=== PATIENT | male | born 1995 | race Two or more races ===

== ENCOUNTER 2019-05-27 13:46 | Inpatient (IN) | payer MEDICAID ==
[~2019-05-27] VITALS: Ht 175.3 cm; Wt 154.0 kg
[2019-05-27 14:37] VITALS: BP 117/68
[2019-05-27] MEDS ORDERED: HALOPERIDOL 5 MG TABLET PO PRN (14:45)
[2019-05-27] MEDS ORDERED: ZOLPIDEM TARTRATE 10 MG TABLET PO PRN (14:45)
[2019-05-27] MEDS ORDERED: INFLUENZA VIRUS VACCINE QVS 2019-20 (3YR+)/PF 60 MCG/0.5 ML SYRINGE IM ONE (15:15)
[2019-05-27 16:26] VITALS: BP 124/71
[2019-05-27] MEDS: LORazepam 2 MG TABLET PO PRN (16:28)
[2019-05-28 00:30] VITALS: BP 111/62
[2019-05-28] MEDS: NICOTINE 21 MG/24 HOUR PATCH TD SCH (09:57)
[2019-05-28] MEDS: BACITRACIN 28.4 GM OINTMENT TP SCH ×2 (09:57→16:17)
[2019-05-28 16:02] VITALS: BP 116/68
[2019-05-28] MEDS: LORazepam 2 MG TABLET PO PRN (16:28)
[2019-05-29] MEDS: LORazepam 2 MG TABLET PO PRN ×3 (05:44→18:42)
[2019-05-29 06:00] VITALS: BP 127/71
[2019-05-29 08:04] VITALS: BP 106/69
[2019-05-29] MEDS: NICOTINE 21 MG/24 HOUR PATCH TD SCH (08:04)
[2019-05-29] MEDS: BACITRACIN 28.4 GM OINTMENT TP SCH ×2 (08:05→17:40)
[2019-05-29 08:16] LABS: HEMOGLOBIN A1C 4.6 % (4.5-6.2)
[2019-05-29 08:27] LABS: EOSINOPHILS % (AUTO) 14.6 % (1.0-6.0); HEMATOCRIT 45.1 % (41-53); HEMOGLOBIN 15.6 g/dL (13.5-17.5); LYMPHOCYTES # (AUTO) 1.2 K/uL (1.0-4.8); LYMPHOCYTES % (AUTO) 18.8 % (22.0-44.0); MEAN CORPUSCULAR HEMOGLOBIN 32.7 pg (26.0-34.0); MEAN CORPUSCULAR HGB CONC 34.7 G/dL (31.0-37.0); MEAN CORPUSCULAR VOLUME 94 fL (80-100); MONOCYTES # (AUTO) 0.5 K/uL (0.1-1.0); MONOCYTES % (AUTO) 7.5 % (2.0-9.0); NEUTROPHILS # (AUTO) 3.8 K/uL (1.8-7.7); NEUTROPHILS % (AUTO) 58.1 % (40.0-70.0); PLATELET COUNT (AUTO) 207 K/uL (150-450); RED BLOOD CELL COUNT(AUTO) 4.79 MIL/uL (4.50-5.90); RED CELL DISTRIBUTION WIDTH 13.1 % (11.5-14.5)
[2019-05-29 08:31] LABS: ALANINE AMINOTRANSFERASE 18 U/L (12-78); ALBUMIN 3.4 g/dL (3.4-5.0); ALKALINE PHOSPHATASE 52 U/L (46-116); ANION GAP 5 mmol/L (8-16); ASPARTATE AMINOTRANSFERASE 14 U/L (15-37); BILIRUBIN,TOTAL 0.6 mg/dL (0.1-1.0); CALCIUM, TOTAL 8.2 mg/dL (8.8-10.5); CARBON DIOXIDE 30 mmol/L (22-29); CHLORIDE 103 mmol/L (98-107); CHOL/HDL RATIO 2.7 (4.2-7.3); CHOLESTEROL 107 mg/dL (131-200); CREATININE 0.85 mg/dL (0.60-1.30); FREE T4 (FREE THYROXINE) 0.79 ng/dL (0.76-1.46); GLOMERULAR FILTR. RATE CALC > 60 mL/min (>60); GLUCOSE,RANDOM 105 mg/dL (70-110); HDL CHOLESTEROL 40 mg/dL (40-60); LDL CHOL (CALC.) 55 mg/dL (0-130); POTASSIUM 3.6 mmol/L (3.5-5.1); SODIUM SERUM 138 mmol/L (136-145); THYROID STIMULATING HORMONE 1.33 uIU/mL (0.36-3.74); TOTAL PROTEIN, SERUM 6.3 g/dL (6.4-8.2); TRIGLYCERIDES 58 mg/dL (15-150); UREA NITROGEN, BLOOD 12 mg/dL (7-18)
[2019-05-29 16:24] VITALS: BP 108/60
[2019-05-30 00:43] VITALS: BP 117/72
[2019-05-30 08:10] VITALS: BP 108/94
[2019-05-30] MEDS: BACITRACIN 28.4 GM OINTMENT TP SCH (08:19)
[2019-05-30] MEDS: NICOTINE 21 MG/24 HOUR PATCH TD SCH (08:19)
[2019-05-30] MEDS: LORazepam 2 MG TABLET PO PRN (10:13)
[2019-05-30] MEDS ORDERED: BACI30OI10 TP (11:32)
== END 2019-05-30 12:30 | disposition home or self-care (01) | DRG 750 ==
LOC: B2S 14:51
PROVIDERS: ADMIT Psychiatry & Neurology Psychiatry; ATTEND Psychiatry & Neurology Psychiatry
DX: F25.9 Schizoaffective disorder, unspecified (principal); F15.90 Other stimulant use, unspecified, uncomplicated
CPT/HCPCS: 83036; 84439; 84443

== ENCOUNTER 2019-06-07 15:05 | Inpatient (IN) | payer MEDICAID ==
[~2019-06-07] VITALS: Ht 175.3 cm; Wt 71.7 kg
[~2019-06-07 15:05] MED LIST: BACI30OI10 TP
[2019-06-07] MEDS ORDERED: HALOPERIDOL 5 MG TABLET PO PRN (16:30)
[2019-06-07 16:50] VITALS: BP 113/66
[2019-06-08 00:49] VITALS: BP 109/62
[2019-06-08] MEDS ORDERED: INFLUENZA VIRUS VACCINE QVS 2019-20 (3YR+)/PF 60 MCG/0.5 ML SYRINGE IM ONE (03:45)
[2019-06-08 08:12] VITALS: BP 111/76
[2019-06-08 08:19] LABS: APPEARANCE,URINE CLEAR (CLEAR); BILIRUBIN,URINE NEGATIVE (NEGATIVE); GLUCOSE, URINE (UA) NEGATIVE (NEGATIVE); KETONES,URINE NEGATIVE (NEGATIVE); LEUKOCYTE ESTERASE ,URINE NEGATIVE (NEGATIVE); NITRATE,URINE NEGATIVE (NEGATIVE); OCCULT BLOOD,URINE NEGATIVE (NEGATIVE); PH,URINE 7.5 (5.0-8.0); PROTEIN,URINE NEGATIVE (NEGATIVE)
[2019-06-08 08:20] LABS: BASOPHILS % (AUTO) 0.5 % (0.0-2.0); EOSINOPHILS % (AUTO) 14.3 % (1.0-6.0); HEMATOCRIT 47.1 % (41-53); HEMOGLOBIN 16.2 g/dL (13.5-17.5); LYMPHOCYTES # (AUTO) 1.5 K/uL (1.0-4.8); LYMPHOCYTES % (AUTO) 23.8 % (22.0-44.0); MEAN CORPUSCULAR HEMOGLOBIN 32.6 pg (26.0-34.0); MEAN CORPUSCULAR HGB CONC 34.4 G/dL (31.0-37.0); MEAN CORPUSCULAR VOLUME 95 fL (80-100); MONOCYTES # (AUTO) 0.5 K/uL (0.1-1.0); MONOCYTES % (AUTO) 8.1 % (2.0-9.0); NEUTROPHILS # (AUTO) 3.3 K/uL (1.8-7.7); NEUTROPHILS % (AUTO) 53.3 % (40.0-70.0); PLATELET COUNT (AUTO) 212 K/uL (150-450); RED BLOOD CELL COUNT(AUTO) 4.96 MIL/uL (4.50-5.90); RED CELL DISTRIBUTION WIDTH 13.2 % (11.5-14.5)
[2019-06-08 08:24] LABS: AMPHET/METH SCREEN,URINE NEGATIVE (NEGATIVE); BARBITURATE SCREEN, URINE NEGATIVE (NEGATIVE); BENZODIAZEPINES SCREEN,URINE NEGATIVE (NEGATIVE); CANNABINOID SCREEN,URINE POSITIVE (NEGATIVE); COCAINE SCREEN,URINE NEGATIVE (NEGATIVE); METHADONE SCREEN, URINE NEGATIVE (NEGATIVE); OPIATE SCREEN,URINE NEGATIVE (NEGATIVE); PHENCYCLIDINE SCREEN,URINE NEGATIVE (NEGATIVE)
[2019-06-08 08:44] LABS: HEMOGLOBIN A1C 4.8 % (4.5-6.2)
[2019-06-08 08:49] LABS: ALANINE AMINOTRANSFERASE 71 U/L (12-78); ALBUMIN 3.7 g/dL (3.4-5.0); ALKALINE PHOSPHATASE 53 U/L (46-116); ANION GAP 8 mmol/L (8-16); ASPARTATE AMINOTRANSFERASE 92 U/L (15-37); BILIRUBIN,TOTAL 0.7 mg/dL (0.1-1.0); CALCIUM, TOTAL 8.9 mg/dL (8.8-10.5); CARBON DIOXIDE 28 mmol/L (22-29); CHLORIDE 103 mmol/L (98-107); CHOL/HDL RATIO 3.2 (4.2-7.3); CHOLESTEROL 145 mg/dL (131-200); CREATININE 0.93 mg/dL (0.60-1.30); FREE T4 (FREE THYROXINE) 0.76 ng/dL (0.76-1.46); GLOMERULAR FILTR. RATE CALC > 60 mL/min (>60); GLUCOSE,RANDOM 73 mg/dL (70-110); HDL CHOLESTEROL 46 mg/dL (40-60); LDL CHOL (CALC.) 88 mg/dL (0-130); POTASSIUM 4.1 mmol/L (3.5-5.1); SODIUM SERUM 139 mmol/L (136-145); THYROID STIMULATING HORMONE 1.19 uIU/mL (0.36-3.74); TOTAL PROTEIN, SERUM 6.7 g/dL (6.4-8.2); TRIGLYCERIDES 53 mg/dL (15-150); UREA NITROGEN, BLOOD 16 mg/dL (7-18)
[2019-06-08] MEDS: OLANZapine 5 MG TABLET PO SCH (16:35)
[2019-06-08 18:00] VITALS: BP 104/80
[2019-06-09 00:41] VITALS: BP 118/65
[2019-06-09 08:22] VITALS: BP 110/61
[2019-06-09] MEDS: OLANZapine 5 MG TABLET PO SCH ×2 (08:29→16:43)
[2019-06-09 16:23] VITALS: BP 102/60
[2019-06-09] MEDS: MUPIROCIN CALCIUM 2% 22 GM OINTMENT NASAL SCH (16:43)
[2019-06-10 00:18] VITALS: BP 107/60
[2019-06-10 08:11] VITALS: BP 100/72
[2019-06-10] MEDS: MUPIROCIN CALCIUM 2% 22 GM OINTMENT NASAL SCH ×2 (08:39→16:04)
[2019-06-10] MEDS: OLANZapine 5 MG TABLET PO SCH ×2 (08:39→16:04)
[2019-06-10 16:04] VITALS: BP 115/63
[2019-06-11 01:06] VITALS: BP 104/68
[2019-06-11 08:21] VITALS: BP 109/60
[2019-06-11] MEDS: MUPIROCIN CALCIUM 2% 22 GM OINTMENT NASAL SCH ×2 (08:56→16:09)
[2019-06-11] MEDS: OLANZapine 5 MG TABLET PO SCH ×2 (08:56→16:09)
[2019-06-11 16:07] VITALS: BP 123/70
[2019-06-11] MEDS: ZOLPIDEM TARTRATE 10 MG TABLET PO PRN (20:32)
[2019-06-12 00:12] VITALS: BP 121/60
[2019-06-12] MEDS: LORazepam 2 MG TABLET PO PRN (02:10)
[2019-06-12 08:16] VITALS: BP 135/73
[2019-06-12] MEDS: OLANZapine 5 MG TABLET PO SCH ×2 (08:22→16:30)
[2019-06-12] MEDS: MUPIROCIN CALCIUM 2% 22 GM OINTMENT NASAL SCH ×2 (08:23→16:31)
[2019-06-12 16:05] VITALS: BP 119/78
[2019-06-12] MEDS: ZOLPIDEM TARTRATE 10 MG TABLET PO PRN (20:27)
[2019-06-13] MEDS: LORazepam 2 MG TABLET PO PRN (00:25)
[2019-06-13] MEDS: ACETAMINOPHEN 325 MG TABLET PO PRN ×2 (00:25→07:50)
[2019-06-13] MEDS ORDERED: OLAN5TAB2 PO (08:15)
[2019-06-13 08:19] VITALS: BP 127/89
[2019-06-13] MEDS: MUPIROCIN CALCIUM 2% 22 GM OINTMENT NASAL SCH (09:02)
[2019-06-13] MEDS: OLANZapine 5 MG TABLET PO SCH (09:02)
== END 2019-06-13 10:00 | disposition home or self-care (01) | DRG 750 ==
LOC: B2S 16:59
PROVIDERS: ADMIT Psychiatry & Neurology Psychiatry; ATTEND Psychiatry & Neurology Psychiatry
DX: F25.9 Schizoaffective disorder, unspecified (principal); Z59.0 Homelessness; F12.90 Cannabis use, unspecified, uncomplicated; F15.90 Other stimulant use, unspecified, uncomplicated; R79.89 Other specified abnormal findings of blood chemistry; F32.9 Major depressive disorder, single episode, unspecified; Z28.21 Immunization not carried out because of patient refusal
CPT/HCPCS: 80307; 83036; 84439; 84443; 87081

== ENCOUNTER 2019-06-14 03:29 | Emergency (ER) | payer MEDICAID ==
[~2019-06-14] VITALS: Ht 175.3 cm; Wt 71.8 kg
[~2019-06-14 03:29] MED LIST changes: -BACI30OI10 TP; +OLAN5TAB2 PO
[2019-06-14] MEDS ORDERED: PERTUSS(ACELL),DIPH,TET VAC/PF 0.5 ML VIAL IM ONE (04:45)
[2019-06-14] MEDS ORDERED: LIDOCAINE/PF 1% 2 ML VIAL IM ONE (06:15)
[2019-06-14] MEDS ORDERED: CefTRIAXone SODIUM 1 GM/VIAL IM ONE (06:15)
[2019-06-14] MEDS ORDERED: BUPIVACAINE HCL/PF 0.25% 30 ML VIAL INJ ONE (06:15)
[2019-06-14 06:45] LABS: BASOPHILS % (AUTO) 0.6 % (0.0-2.0); EOSINOPHILS % (AUTO) 4.6 % (1.0-6.0); HEMATOCRIT 44.7 % (41-53); HEMOGLOBIN 15.4 g/dL (13.5-17.5); LYMPHOCYTES # (AUTO) 1.8 K/uL (1.0-4.8); LYMPHOCYTES % (AUTO) 14.8 % (22.0-44.0); MEAN CORPUSCULAR HEMOGLOBIN 32.7 pg (26.0-34.0); MEAN CORPUSCULAR HGB CONC 34.3 G/dL (31.0-37.0); MEAN CORPUSCULAR VOLUME 95 fL (80-100); MONOCYTES # (AUTO) 1.5 K/uL (0.1-1.0); MONOCYTES % (AUTO) 12.7 % (2.0-9.0); NEUTROPHILS % (AUTO) 67.3 % (40.0-70.0); PLATELET COUNT (AUTO) 198 K/uL (150-450); RED CELL DISTRIBUTION WIDTH 13.5 % (11.5-14.5)
[2019-06-14 06:56] LABS: ANION GAP 6 mmol/L (8-16); CALCIUM, TOTAL 8.7 mg/dL (8.8-10.5); CARBON DIOXIDE 30 mmol/L (22-29); CHLORIDE 104 mmol/L (98-107); CREATININE 0.94 mg/dL (0.60-1.30); GLOMERULAR FILTR. RATE CALC > 60 mL/min (>60); GLUCOSE,RANDOM 100 mg/dL (70-110); POTASSIUM 4.1 mmol/L (3.5-5.1); SODIUM SERUM 140 mmol/L (136-145); UREA NITROGEN, BLOOD 10 mg/dL (7-18)
[2019-06-14 07:02] LABS: ALANINE AMINOTRANSFERASE 44 U/L (12-78); ALBUMIN 3.7 g/dL (3.4-5.0); ALKALINE PHOSPHATASE 55 U/L (46-116); ASPARTATE AMINOTRANSFERASE 20 U/L (15-37); BILIRUBIN,TOTAL 0.6 mg/dL (0.1-1.0); TOTAL PROTEIN, SERUM 6.7 g/dL (6.4-8.2)
[2019-06-14 07:52] VITALS: BP 121/74
== END 2019-06-14 07:57 | disposition home or self-care (01) ==
LOC: EMS 03:29
DX: L02.611 Cutaneous abscess of right foot (principal); L03.031 Cellulitis of right toe; F41.9 Anxiety disorder, unspecified; F17.210 Nicotine dependence, cigarettes, uncomplicated; Z98.890 Other specified postprocedural states; Z79.899 Other long term (current) drug therapy
CPT/HCPCS: 10060; 36415; 73630; 80053; 85025; 87070; 87077; 87186; 87205; 90471; 90715; 96372; 99284; 99406; J0696; J3490 ×2

== ENCOUNTER 2019-07-03 03:44 | Inpatient (IN) | payer MEDICAID ==
[~2019-07-03] VITALS: Ht 175.3 cm; Wt 78.0 kg
[2019-07-03] MEDS ORDERED: QUEtiapine FUMARATE 100 MG TABLET PO PRN (08:45)
[2019-07-03 09:52] VITALS: BP 120/80
[2019-07-03] MEDS ORDERED: OLAN5TAB2 PO (10:35)
[2019-07-03] MEDS ORDERED: OLAN10TA3 PO (10:35)
[2019-07-03] MEDS ORDERED: INFLUENZA VIRUS VACCINE QVS 2019-20 (3YR+)/PF 60 MCG/0.5 ML SYRINGE IM ONE (11:00)
[2019-07-03] MEDS: OLANZapine 5 MG TABLET PO SCH ×2 (12:09→16:49)
[2019-07-03] MEDS: NICOTINE 21 MG/24 HOUR PATCH TD SCH (13:06)
[2019-07-03 16:23] VITALS: BP 113/62
[2019-07-04 01:10] VITALS: BP 114/77
[2019-07-04 01:58] VITALS: BP 114/73
[2019-07-04 08:00] VITALS: BP 111/62
[2019-07-04] MEDS: OLANZapine 5 MG TABLET PO SCH ×2 (08:21→16:56)
[2019-07-04] MEDS: NICOTINE 21 MG/24 HOUR PATCH TD SCH ×2 (08:21→09:00)
[2019-07-04] MEDS: BuPROPion HCL XL 150 MG ER TABLET PO SCH (12:34)
[2019-07-04 16:11] VITALS: BP 108/67
[2019-07-05 00:01] VITALS: BP 129/66
[2019-07-05] MEDS: OLANZapine 5 MG TABLET PO SCH ×2 (08:43→16:37)
[2019-07-05] MEDS: NICOTINE 21 MG/24 HOUR PATCH TD SCH (08:44)
[2019-07-05] MEDS: BuPROPion HCL XL 150 MG ER TABLET PO SCH (08:48)
[2019-07-05] MEDS: LORazepam 2 MG TABLET PO PRN (13:30)
[2019-07-05 20:31] VITALS: BP 104/67
[2019-07-06 05:15] VITALS: BP 116/77
[2019-07-06] MEDS: NICOTINE 21 MG/24 HOUR PATCH TD SCH (09:00)
[2019-07-06] MEDS: OLANZapine 10 MG TABLET PO SCH ×2 (09:31→16:05)
[2019-07-06] MEDS: BuPROPion HCL XL 150 MG ER TABLET PO SCH (09:32)
[2019-07-06] MEDS: LORazepam 2 MG TABLET PO PRN (16:05)
[2019-07-06 16:29] VITALS: BP 114/56
[2019-07-06] MEDS ORDERED: OLANZapine 5 MG TABLET PO SCH (17:00)
[2019-07-07 04:16] VITALS: BP 119/72
[2019-07-07 08:35] VITALS: BP 127/78
[2019-07-07] MEDS: NICOTINE 21 MG/24 HOUR PATCH TD SCH (09:00)
[2019-07-07] MEDS: BuPROPion HCL XL 150 MG ER TABLET PO SCH (10:38)
[2019-07-07] MEDS: OLANZapine 10 MG TABLET PO SCH ×2 (10:38→16:07)
[2019-07-07] MEDS: LORazepam 2 MG TABLET PO PRN ×2 (10:46→16:07)
[2019-07-07 16:18] VITALS: BP 121/59
[2019-07-07] MEDS: ZOLPIDEM TARTRATE 10 MG TABLET PO PRN (20:13)
[2019-07-08 02:06] VITALS: BP 120/70
[2019-07-08] MEDS: LORazepam 2 MG TABLET PO PRN ×2 (05:25→18:27)
[2019-07-08 08:28] VITALS: BP 131/76
[2019-07-08] MEDS: BuPROPion HCL XL 150 MG ER TABLET PO SCH (08:51)
[2019-07-08] MEDS: OLANZapine 10 MG TABLET PO SCH ×2 (08:51→17:17)
[2019-07-08] MEDS: NICOTINE 21 MG/24 HOUR PATCH TD SCH (08:51)
[2019-07-08 16:12] VITALS: BP 116/67
[2019-07-09 00:19] VITALS: BP 121/79
[2019-07-09] MEDS: OLANZapine 10 MG TABLET PO SCH ×2 (08:11→16:13)
[2019-07-09] MEDS: BuPROPion HCL XL 150 MG ER TABLET PO SCH (08:11)
[2019-07-09] MEDS: NICOTINE 21 MG/24 HOUR PATCH TD SCH (08:18)
[2019-07-09 08:34] VITALS: BP 114/69
[2019-07-09] MEDS: LORazepam 2 MG TABLET PO PRN (14:44)
[2019-07-09 16:17] VITALS: BP 116/73
[2019-07-09] MEDS: ZOLPIDEM TARTRATE 10 MG TABLET PO PRN (20:28)
[2019-07-10 01:32] VITALS: BP 123/67
[2019-07-10 08:00] VITALS: BP 129/68
[2019-07-10] MEDS ORDERED: PANTOPRAZOLE SODIUM 40 MG DR TABLET PO SCH (09:00)
[2019-07-10] MEDS: OLANZapine 10 MG TABLET PO SCH ×2 (09:43→16:38)
[2019-07-10] MEDS: NICOTINE 21 MG/24 HOUR PATCH TD SCH (09:44)
[2019-07-10] MEDS: BuPROPion HCL XL 150 MG ER TABLET PO SCH (09:44)
[2019-07-10 16:16] VITALS: BP 121/70
[2019-07-10] MEDS: ZOLPIDEM TARTRATE 10 MG TABLET PO PRN (20:26)
[2019-07-11 00:55] VITALS: BP 114/68
[2019-07-11] MEDS ORDERED: BUPR300T53 PO (03:28)
[2019-07-11] MEDS ORDERED: OLAN10TA3 PO (03:29)
[2019-07-11] MEDS ORDERED: PANT20TA PO (03:29)
== END 2019-07-11 07:26 | disposition home or self-care (01) | DRG 750 ==
LOC: B3A 08:00
PROVIDERS: ADMIT Psychiatry & Neurology Psychiatry; ATTEND Psychiatry & Neurology Psychiatry
DX: F25.1 Schizoaffective disorder, depressive type (principal); R45.851 Suicidal ideations; F15.10 Other stimulant abuse, uncomplicated; R79.89 Other specified abnormal findings of blood chemistry
CPT/HCPCS: 87081

== ENCOUNTER 2019-08-07 21:20 | Inpatient (IN) | payer MEDICAID ==
[~2019-08-07] VITALS: Ht 175.3 cm; Wt 84.4 kg
[~2019-08-07 21:20] MED LIST changes: +BUPR300T53 PO; +OLAN10TA3 PO; -OLAN5TAB2 PO; +PANT20TA PO
[2019-08-08 09:06] VITALS: BP 128/58
[2019-08-08] MEDS: OLANZapine 10 MG TABLET PO SCH ×2 (09:45→17:26)
[2019-08-08] MEDS: BuPROPion HCL XL 150 MG ER TABLET PO SCH (09:45)
[2019-08-08] MEDS ORDERED: ZOLPIDEM TARTRATE 10 MG TABLET PO PRN (09:45)
[2019-08-08 10:32] VITALS: BP 115/77
[2019-08-08] MEDS ORDERED: PNEUMOCOCCAL VACCINE POLYVALENT 0.5 ML VIAL [PPSV23] IM ONE (11:45)
[2019-08-08 16:29] VITALS: BP 124/68
[2019-08-09 00:44] VITALS: BP 127/76
[2019-08-09 08:36] VITALS: BP 121/74
[2019-08-09] MEDS: OLANZapine 10 MG TABLET PO SCH ×2 (08:55→17:35)
[2019-08-09] MEDS: BuPROPion HCL XL 150 MG ER TABLET PO SCH (08:55)
[2019-08-09 16:40] VITALS: BP 105/63
[2019-08-10 00:26] VITALS: BP 122/83
[2019-08-10 07:38] LABS: BASOPHILS % (AUTO) 0.8 % (0.0-2.0); EOSINOPHILS % (AUTO) 7.7 % (1.0-6.0); HEMATOCRIT 47.4 % (41-53); HEMOGLOBIN 16.5 g/dL (13.5-17.5); LYMPHOCYTES # (AUTO) 1.4 K/uL (1.0-4.8); LYMPHOCYTES % (AUTO) 17.6 % (22.0-44.0); MEAN CORPUSCULAR HEMOGLOBIN 32.7 pg (26.0-34.0); MEAN CORPUSCULAR HGB CONC 34.8 G/dL (31.0-37.0); MEAN CORPUSCULAR VOLUME 94 fL (80-100); MONOCYTES # (AUTO) 0.8 K/uL (0.1-1.0); MONOCYTES % (AUTO) 10.6 % (2.0-9.0); NEUTROPHILS # (AUTO) 5.1 K/uL (1.8-7.7); NEUTROPHILS % (AUTO) 63.3 % (40.0-70.0); PLATELET COUNT (AUTO) 214 K/uL (150-450); RED BLOOD CELL COUNT(AUTO) 5.05 MIL/uL (4.50-5.90); RED CELL DISTRIBUTION WIDTH 12.8 % (11.5-14.5)
[2019-08-10 07:47] LABS: HEMOGLOBIN A1C 4.9 % (4.5-6.2)
[2019-08-10 08:04] LABS: ALANINE AMINOTRANSFERASE 40 U/L (12-78); ALBUMIN 3.5 g/dL (3.4-5.0); ALKALINE PHOSPHATASE 63 U/L (46-116); ANION GAP 5 mmol/L (8-16); ASPARTATE AMINOTRANSFERASE 24 U/L (15-37); BILIRUBIN,TOTAL 0.4 mg/dL (0.1-1.0); CALCIUM, TOTAL 8.6 mg/dL (8.8-10.5); CARBON DIOXIDE 31 mmol/L (22-29); CHLORIDE 104 mmol/L (98-107); CHOL/HDL RATIO 3.3 (4.2-7.3); CHOLESTEROL 110 mg/dL (131-200); CREATININE 0.88 mg/dL (0.60-1.30); FREE T4 (FREE THYROXINE) 0.86 ng/dL (0.76-1.46); GLOMERULAR FILTR. RATE CALC > 60 mL/min (>60); GLUCOSE,RANDOM 74 mg/dL (70-110); HDL CHOLESTEROL 33 mg/dL (40-60); LDL CHOL (CALC.) 66 mg/dL (0-130); SODIUM SERUM 140 mmol/L (136-145); THYROID STIMULATING HORMONE 2.21 uIU/mL (0.36-3.74); TOTAL PROTEIN, SERUM 6.3 g/dL (6.4-8.2); TRIGLYCERIDES 56 mg/dL (15-150); UREA NITROGEN, BLOOD 11 mg/dL (7-18)
[2019-08-10 08:26] VITALS: BP 119/60
[2019-08-10] MEDS: OLANZapine 10 MG TABLET PO SCH ×2 (08:50→16:43)
[2019-08-10] MEDS: BuPROPion HCL XL 150 MG ER TABLET PO SCH (08:50)
[2019-08-10 16:27] VITALS: BP 107/65
[2019-08-11 07:12] VITALS: BP 105/73
[2019-08-11] MEDS: BuPROPion HCL XL 150 MG ER TABLET PO SCH (09:04)
[2019-08-11] MEDS: OLANZapine 10 MG TABLET PO SCH ×2 (09:04→16:21)
[2019-08-11 09:13] VITALS: BP 117/60
[2019-08-11] MEDS: LORazepam 2 MG TABLET PO PRN (15:44)
[2019-08-11 16:09] VITALS: BP 113/71
[2019-08-12 04:31] VITALS: BP 112/77
[2019-08-12] MEDS: OLANZapine 10 MG TABLET PO SCH ×2 (08:41→16:39)
[2019-08-12] MEDS: BuPROPion HCL XL 150 MG ER TABLET PO SCH (08:41)
[2019-08-12 08:49] VITALS: BP 108/63
[2019-08-12] MEDS: LORazepam 2 MG TABLET PO PRN (16:38)
[2019-08-12 19:30] VITALS: BP 127/70
[2019-08-12] MEDS: TraZODone HCL 50 MG TABLET PO SCH (20:10)
[2019-08-13 04:00] VITALS: BP 108/77
[2019-08-13] MEDS: OLANZapine 10 MG TABLET PO SCH ×2 (08:53→16:29)
[2019-08-13] MEDS: BuPROPion HCL XL 150 MG ER TABLET PO SCH (08:53)
[2019-08-13 08:54] VITALS: BP 112/68
[2019-08-13] MEDS: LORazepam 2 MG TABLET PO PRN ×2 (11:06→17:40)
[2019-08-13 16:10] VITALS: BP 108/54
[2019-08-13] MEDS: TraZODone HCL 50 MG TABLET PO SCH (20:08)
[2019-08-14 06:31] VITALS: BP 112/70
[2019-08-14 08:41] VITALS: BP 126/77
[2019-08-14] MEDS: BuPROPion HCL XL 150 MG ER TABLET PO SCH (09:27)
[2019-08-14] MEDS: OLANZapine 10 MG TABLET PO SCH ×2 (09:27→17:37)
[2019-08-14] MEDS: LORazepam 2 MG TABLET PO PRN (10:16)
[2019-08-14] MEDS: QUEtiapine FUMARATE 100 MG TABLET PO PRN (16:14)
[2019-08-14 17:06] VITALS: BP 107/68
[2019-08-14] MEDS: TraZODone HCL 50 MG TABLET PO SCH (20:40)
[2019-08-15 01:22] VITALS: BP 117/73
[2019-08-15] MEDS: LORazepam 2 MG TABLET PO PRN ×3 (05:48→19:13)
[2019-08-15 08:22] VITALS: BP 124/60
[2019-08-15] MEDS: OLANZapine 10 MG TABLET PO SCH ×2 (08:30→17:02)
[2019-08-15] MEDS: BuPROPion HCL XL 150 MG ER TABLET PO SCH (08:30)
[2019-08-15 16:14] VITALS: BP 112/77
[2019-08-15] MEDS: TraZODone HCL 50 MG TABLET PO SCH (20:43)
[2019-08-16 03:30] VITALS: BP 123/70
[2019-08-16] MEDS: LORazepam 2 MG TABLET PO PRN ×2 (05:57→14:50)
[2019-08-16 08:48] VITALS: BP 115/60
[2019-08-16] MEDS: OLANZapine 10 MG TABLET PO SCH ×2 (08:52→16:32)
[2019-08-16] MEDS: BuPROPion HCL XL 150 MG ER TABLET PO SCH (08:52)
[2019-08-16 16:00] VITALS: BP 141/78
[2019-08-16] MEDS: QUEtiapine FUMARATE 100 MG TABLET PO PRN (18:52)
[2019-08-16] MEDS: TraZODone HCL 50 MG TABLET PO SCH (20:01)
[2019-08-17 00:59] VITALS: BP 108/62
[2019-08-17] MEDS: OLANZapine 10 MG TABLET PO SCH ×2 (08:51→17:29)
[2019-08-17] MEDS: BuPROPion HCL XL 150 MG ER TABLET PO SCH (08:52)
[2019-08-17 08:53] VITALS: BP 125/71
[2019-08-17] MEDS: QUEtiapine FUMARATE 100 MG TABLET PO PRN ×2 (09:14→17:37)
[2019-08-17 16:00] VITALS: BP 114/70
[2019-08-17] MEDS: LORazepam 2 MG TABLET PO PRN (18:17)
[2019-08-17] MEDS: TraZODone HCL 50 MG TABLET PO SCH (20:31)
[2019-08-18 03:47] VITALS: BP 105/59
[2019-08-18] MEDS: LORazepam 2 MG TABLET PO PRN ×2 (06:00→15:50)
[2019-08-18] MEDS: BuPROPion HCL XL 150 MG ER TABLET PO SCH (08:29)
[2019-08-18] MEDS: OLANZapine 10 MG TABLET PO SCH ×2 (08:29→16:48)
[2019-08-18 08:32] VITALS: BP 109/64
[2019-08-18] MEDS: QUEtiapine FUMARATE 100 MG TABLET PO PRN ×2 (11:16→17:38)
[2019-08-18 16:26] VITALS: BP 135/69
[2019-08-18] MEDS: TraZODone HCL 50 MG TABLET PO SCH (20:05)
[2019-08-19 05:36] VITALS: BP 118/75
[2019-08-19] MEDS: LORazepam 2 MG TABLET PO PRN ×2 (07:12→16:00)
[2019-08-19 08:36] VITALS: BP 117/72
[2019-08-19] MEDS: BuPROPion HCL XL 150 MG ER TABLET PO SCH (08:55)
[2019-08-19] MEDS: OLANZapine 10 MG TABLET PO SCH ×2 (08:55→16:00)
[2019-08-19] MEDS: QUEtiapine FUMARATE 100 MG TABLET PO PRN ×2 (10:48→17:25)
[2019-08-19 16:33] VITALS: BP 103/63
[2019-08-19] MEDS: TraZODone HCL 100 MG TABLET PO SCH (20:07)
[2019-08-20 04:23] VITALS: BP 112/68
[2019-08-20] MEDS: LORazepam 2 MG TABLET PO PRN ×3 (04:25→18:02)
[2019-08-20] MEDS: OLANZapine 10 MG TABLET PO SCH ×2 (08:57→16:18)
[2019-08-20] MEDS: BuPROPion HCL XL 150 MG ER TABLET PO SCH (08:57)
[2019-08-20 10:49] VITALS: BP 128/67
[2019-08-20] MEDS: QUEtiapine FUMARATE 100 MG TABLET PO PRN (11:52)
[2019-08-20 16:31] VITALS: BP 118/64
[2019-08-20] MEDS: TraZODone HCL 100 MG TABLET PO SCH (20:04)
[2019-08-21 08:00] VITALS: BP 121/78
[2019-08-21] MEDS: BuPROPion HCL XL 150 MG ER TABLET PO SCH (08:38)
[2019-08-21] MEDS: OLANZapine 10 MG TABLET PO SCH ×2 (08:38→16:24)
[2019-08-21] MEDS: LORazepam 2 MG TABLET PO PRN ×2 (11:18→16:24)
[2019-08-21] MEDS: QUEtiapine FUMARATE 100 MG TABLET PO PRN (12:20)
[2019-08-21 16:13] VITALS: BP 131/74
[2019-08-21] MEDS: TraZODone HCL 100 MG TABLET PO SCH (20:10)
[2019-08-21] MEDS ORDERED: TRAZ-257 PO (23:15)
[2019-08-22 01:53] VITALS: BP 123/71
[2019-08-22] MEDS: LORazepam 2 MG TABLET PO PRN (01:53)
== END 2019-08-22 07:10 | disposition home or self-care (01) | DRG 750 ==
LOC: B2S 08-08 10:00
PROVIDERS: ADMIT Psychiatry & Neurology Psychiatry; ATTEND Psychiatry & Neurology Psychiatry
DX: F25.9 Schizoaffective disorder, unspecified (principal); R45.851 Suicidal ideations; Z59.0 Homelessness; F06.4 Anxiety disorder due to known physiological condition; F17.200 Nicotine dependence, unspecified, uncomplicated; K21.9 Gastro-esophageal reflux disease without esophagitis; R79.89 Other specified abnormal findings of blood chemistry; F15.90 Other stimulant use, unspecified, uncomplicated; D72.829 Elevated white blood cell count, unspecified; Z28.21 Immunization not carried out because of patient refusal
CPT/HCPCS: 83036; 84439; 84443; 87081

== ENCOUNTER 2019-10-03 14:21 | Inpatient (IN) | payer MEDICAID ==
[~2019-10-03] VITALS: Ht 175.3 cm; Wt 78.0 kg
[~2019-10-03 14:21] MED LIST changes: +TRAZ-257 PO
[2019-10-03 15:18] VITALS: BP 105/61
[2019-10-03] MEDS ORDERED: PANT40TA25 PO (15:28)
[2019-10-03] MEDS ORDERED: ZOLPIDEM TARTRATE 10 MG TABLET PO PRN (15:30)
[2019-10-03] MEDS ORDERED: INFLUENZA VIRUS VACCINE QVS 2019-20 (3YR+)/PF 60 MCG/0.5 ML SYRINGE IM ONE (16:15)
[2019-10-03 16:58] VITALS: BP 109/66
[2019-10-03] MEDS: HALOPERIDOL 5 MG TABLET PO PRN (17:43)
[2019-10-03] MEDS: LORazepam 2 MG TABLET PO PRN (17:43)
[2019-10-04 06:09] VITALS: BP 109/60
[2019-10-04 07:51] LABS: EOSINOPHILS % (AUTO) 11.6 % (1.0-6.0); HEMOGLOBIN 15.6 g/dL (13.5-17.5); LYMPHOCYTES # (AUTO) 1.4 K/uL (1.0-4.8); LYMPHOCYTES % (AUTO) 22.5 % (22.0-44.0); MEAN CORPUSCULAR HEMOGLOBIN 31.8 pg (26.0-34.0); MEAN CORPUSCULAR HGB CONC 34.7 G/dL (31.0-37.0); MEAN CORPUSCULAR VOLUME 92 fL (80-100); MONOCYTES # (AUTO) 0.6 K/uL (0.1-1.0); MONOCYTES % (AUTO) 9.1 % (2.0-9.0); NEUTROPHILS # (AUTO) 3.5 K/uL (1.8-7.7); NEUTROPHILS % (AUTO) 55.8 % (40.0-70.0); PLATELET COUNT (AUTO) 222 K/uL (150-450); RED BLOOD CELL COUNT(AUTO) 4.91 MIL/uL (4.50-5.90); RED CELL DISTRIBUTION WIDTH 13.5 % (11.5-14.5)
[2019-10-04 08:07] VITALS: BP 102/65
[2019-10-04 08:10] LABS: HEMOGLOBIN A1C 5.2 % (3.8-5.6)
[2019-10-04 08:15] LABS: ALANINE AMINOTRANSFERASE 21 U/L (12-78); ALBUMIN 3.8 g/dL (3.4-5.0); ALKALINE PHOSPHATASE 53 U/L (46-116); ANION GAP 5 mmol/L (8-16); ASPARTATE AMINOTRANSFERASE 17 U/L (15-37); BILIRUBIN,TOTAL 0.6 mg/dL (0.1-1.0); CALCIUM, TOTAL 8.9 mg/dL (8.8-10.5); CARBON DIOXIDE 31 mmol/L (22-29); CHLORIDE 104 mmol/L (98-107); CHOL/HDL RATIO 2.4 (4.2-7.3); CHOLESTEROL 101 mg/dL (131-200); CREATININE 1.01 mg/dL (0.60-1.30); FREE T4 (FREE THYROXINE) 0.92 ng/dL (0.76-1.46); GLOMERULAR FILTR. RATE CALC > 60 mL/min (>60); GLUCOSE,RANDOM 86 mg/dL (70-110); HDL CHOLESTEROL 42 mg/dL (40-60); LDL CHOL (CALC.) 49 mg/dL (0-130); POTASSIUM 3.7 mmol/L (3.5-5.1); SODIUM SERUM 140 mmol/L (136-145); THYROID STIMULATING HORMONE 1.05 uIU/mL (0.36-3.74); TOTAL PROTEIN, SERUM 6.2 g/dL (6.4-8.2); TRIGLYCERIDES 50 mg/dL (15-150); UREA NITROGEN, BLOOD 11 mg/dL (7-18)
[2019-10-04] MEDS ORDERED: ONDANSETRON HCL 4 MG TABLET PO PRN (08:15)
[2019-10-04] MEDS ORDERED: ACETAMINOPHEN 325 MG TABLET PO PRN (08:15)
[2019-10-04] MEDS ORDERED: PETROLATUM,WHITE 28 GM JELLY TP PRN (08:15)
[2019-10-04] MEDS ORDERED: GuaiFENesin/D-METHORPHAN [SUGAR-FREE] 200-20MG/10 ML SYRUP UDCUP PO PRN (08:15)
[2019-10-04] MEDS ORDERED: LOPERAMIDE HCL 2 MG CAPSULE PO PRN (08:15)
[2019-10-04] MEDS ORDERED: DOCUSATE SODIUM 100 MG CAPSULE PO PRN (08:15)
[2019-10-04] MEDS ORDERED: IBUPROFEN 400 MG TABLET PO PRN (08:15)
[2019-10-04] MEDS ORDERED: CloNIDine HCL 0.1 MG TABLET PO PRN (08:15)
[2019-10-04] MEDS ORDERED: ALBUTEROL SULFATE HFA 90 MCG/PUFF 8 GM INHALER IH PRN (08:15)
[2019-10-04] MEDS ORDERED: MAGNESIUM HYDROXIDE SUSPENSION 30 ML UDCUP PO PRN (08:15)
[2019-10-04] MEDS ORDERED: MAG HYDROX/AL HYDROX/SIMETH ES 30 ML SUSPENSION UDCUP PO PRN (08:15)
[2019-10-04] MEDS: PANTOPRAZOLE SODIUM 40 MG DR TABLET PO SCH (10:04)
[2019-10-04] MEDS: OLANZapine 10 MG TABLET PO SCH (16:19)
[2019-10-04 16:45] VITALS: BP 107/60
[2019-10-04] MEDS: HALOPERIDOL 5 MG TABLET PO PRN (17:09)
[2019-10-04] MEDS: LORazepam 2 MG TABLET PO PRN (17:09)
[2019-10-05 01:58] VITALS: BP 122/78
[2019-10-05] MEDS: BuPROPion HCL XL 150 MG ER TABLET PO SCH (08:06)
[2019-10-05] MEDS: PANTOPRAZOLE SODIUM 40 MG DR TABLET PO SCH (08:06)
[2019-10-05] MEDS: OLANZapine 10 MG TABLET PO SCH ×2 (08:06→16:28)
[2019-10-05 08:19] LABS: HEMOGLOBIN A1C 5.1 % (3.8-5.6)
[2019-10-05 08:23] LABS: ALANINE AMINOTRANSFERASE 21 U/L (12-78); ALBUMIN 3.7 g/dL (3.4-5.0); ALKALINE PHOSPHATASE 50 U/L (46-116); ANION GAP 7 mmol/L (8-16); ASPARTATE AMINOTRANSFERASE 13 U/L (15-37); BILIRUBIN,TOTAL 0.4 mg/dL (0.1-1.0); CALCIUM, TOTAL 8.7 mg/dL (8.8-10.5); CARBON DIOXIDE 28 mmol/L (22-29); CHLORIDE 106 mmol/L (98-107); CHOL/HDL RATIO 2.9 (4.2-7.3); CHOLESTEROL 113 mg/dL (131-200); GLOMERULAR FILTR. RATE CALC > 60 mL/min (>60); GLUCOSE,RANDOM 83 mg/dL (70-110); HDL CHOLESTEROL 39 mg/dL (40-60); LDL CHOL (CALC.) 64 mg/dL (0-130); POTASSIUM 4.1 mmol/L (3.5-5.1); SODIUM SERUM 141 mmol/L (136-145); TOTAL PROTEIN, SERUM 5.9 g/dL (6.4-8.2); TRIGLYCERIDES 49 mg/dL (15-150); UREA NITROGEN, BLOOD 12 mg/dL (7-18)
[2019-10-05 16:04] VITALS: BP 108/73
[2019-10-05] MEDS: LORazepam 2 MG TABLET PO PRN (16:28)
[2019-10-06 00:33] VITALS: BP 119/77
[2019-10-06 08:27] VITALS: BP 113/74
[2019-10-06] MEDS: BuPROPion HCL XL 150 MG ER TABLET PO SCH (08:32)
[2019-10-06] MEDS: OLANZapine 10 MG TABLET PO SCH ×2 (08:32→16:09)
[2019-10-06] MEDS: PANTOPRAZOLE SODIUM 40 MG DR TABLET PO SCH (08:32)
[2019-10-06 16:06] VITALS: BP 117/60
[2019-10-06] MEDS: HALOPERIDOL 5 MG TABLET PO PRN (16:09)
[2019-10-06] MEDS: LORazepam 2 MG TABLET PO PRN (16:09)
[2019-10-07 06:24] VITALS: BP 120/74
[2019-10-07 08:07] VITALS: BP 115/62
[2019-10-07] MEDS: OLANZapine 10 MG TABLET PO SCH ×2 (08:44→16:15)
[2019-10-07] MEDS: PANTOPRAZOLE SODIUM 40 MG DR TABLET PO SCH (08:44)
[2019-10-07] MEDS: BuPROPion HCL XL 150 MG ER TABLET PO SCH (08:44)
[2019-10-07 16:00] VITALS: BP 134/71
[2019-10-07] MEDS: LORazepam 2 MG TABLET PO PRN (16:15)
[2019-10-08 06:13] VITALS: BP 113/73
[2019-10-08 08:16] VITALS: BP 117/62
[2019-10-08] MEDS: BuPROPion HCL XL 150 MG ER TABLET PO SCH (08:26)
[2019-10-08] MEDS: PANTOPRAZOLE SODIUM 40 MG DR TABLET PO SCH (08:26)
[2019-10-08] MEDS: OLANZapine 10 MG TABLET PO SCH ×2 (08:26→16:08)
[2019-10-08] MEDS: NICOTINE 14 MG/24 HOUR PATCH TD PRN (11:52)
[2019-10-08] MEDS: LORazepam 2 MG TABLET PO PRN ×2 (12:15→16:08)
[2019-10-08 16:00] VITALS: BP 133/78
[2019-10-09 05:37] VITALS: BP 128/69
[2019-10-09 08:05] LABS: APPEARANCE,URINE CLEAR (CLEAR); BILIRUBIN,URINE NEGATIVE (NEGATIVE); GLUCOSE, URINE (UA) NEGATIVE (NEGATIVE); KETONES,URINE NEGATIVE (NEGATIVE); LEUKOCYTE ESTERASE ,URINE NEGATIVE (NEGATIVE); NITRATE,URINE NEGATIVE (NEGATIVE); OCCULT BLOOD,URINE NEGATIVE (NEGATIVE); PH,URINE 6.5 (5.0-8.0); PROTEIN,URINE NEGATIVE (NEGATIVE); UROBILINOGEN,URINE 0.2 mg/dL (<=1.0)
[2019-10-09 08:06] LABS: AMPHET/METH SCREEN,URINE NEGATIVE (NEGATIVE); BARBITURATE SCREEN, URINE NEGATIVE (NEGATIVE); BENZODIAZEPINES SCREEN,URINE NEGATIVE (NEGATIVE); CANNABINOID SCREEN,URINE POSITIVE (NEGATIVE); COCAINE SCREEN,URINE NEGATIVE (NEGATIVE); METHADONE SCREEN, URINE NEGATIVE (NEGATIVE); OPIATE SCREEN,URINE NEGATIVE (NEGATIVE); PHENCYCLIDINE SCREEN,URINE NEGATIVE (NEGATIVE)
[2019-10-09] MEDS: OLANZapine 10 MG TABLET PO SCH ×2 (08:25→16:24)
[2019-10-09] MEDS: PANTOPRAZOLE SODIUM 40 MG DR TABLET PO SCH (08:25)
[2019-10-09] MEDS: BuPROPion HCL XL 150 MG ER TABLET PO SCH (08:25)
[2019-10-09] MEDS: LORazepam 2 MG TABLET PO PRN (09:47)
[2019-10-09 09:49] VITALS: BP 114/60
[2019-10-09 19:26] VITALS: BP 122/75
[2019-10-10 01:31] VITALS: BP 120/81
[2019-10-10 08:00] VITALS: BP 113/67
[2019-10-10] MEDS: OLANZapine 10 MG TABLET PO SCH ×2 (08:46→17:12)
[2019-10-10] MEDS: BuPROPion HCL XL 150 MG ER TABLET PO SCH (08:46)
[2019-10-10] MEDS: PANTOPRAZOLE SODIUM 40 MG DR TABLET PO SCH (08:46)
[2019-10-10 16:09] VITALS: BP 115/73
[2019-10-10] MEDS ORDERED: NICOTINE 14 MG/24 HOUR PATCH TD PRN (19:30)
[2019-10-11 03:00] VITALS: BP 119/71
[2019-10-11 08:17] VITALS: BP 119/62
[2019-10-11] MEDS: OLANZapine 10 MG TABLET PO SCH ×2 (08:52→17:07)
[2019-10-11] MEDS: BuPROPion HCL XL 150 MG ER TABLET PO SCH (08:52)
[2019-10-11] MEDS: PANTOPRAZOLE SODIUM 40 MG DR TABLET PO SCH (08:52)
[2019-10-11 16:53] VITALS: BP 118/70
[2019-10-12 06:44] VITALS: BP 117/72
[2019-10-12 08:25] VITALS: BP 141/73
[2019-10-12] MEDS: OLANZapine 10 MG TABLET PO SCH ×2 (09:13→16:26)
[2019-10-12] MEDS: PANTOPRAZOLE SODIUM 40 MG DR TABLET PO SCH (09:14)
[2019-10-12] MEDS: BuPROPion HCL XL 150 MG ER TABLET PO SCH (09:14)
[2019-10-12 16:05] VITALS: BP 121/65
[2019-10-12] MEDS: LORazepam 2 MG TABLET PO PRN (16:26)
[2019-10-13 01:58] VITALS: BP 120/69
[2019-10-13 08:33] VITALS: BP 115/65
[2019-10-13] MEDS: OLANZapine 10 MG TABLET PO SCH (09:12)
[2019-10-13] MEDS: BuPROPion HCL XL 150 MG ER TABLET PO SCH (09:12)
[2019-10-13] MEDS: PANTOPRAZOLE SODIUM 40 MG DR TABLET PO SCH (09:12)
[2019-10-13] MEDS: NICOTINE 14 MG/24 HOUR PATCH TD PRN (11:36)
== END 2019-10-13 14:58 | disposition home or self-care (01) | DRG 750 ==
LOC: B3A 15:48
DX: F25.1 Schizoaffective disorder, depressive type (principal); R45.851 Suicidal ideations; K21.9 Gastro-esophageal reflux disease without esophagitis; F15.10 Other stimulant abuse, uncomplicated; Y90.9 Presence of alcohol in blood, level not specified; F10.10 Alcohol abuse, uncomplicated; F41.9 Anxiety disorder, unspecified; Z79.899 Other long term (current) drug therapy; Z91.5 Personal history of self-harm; Z71.41 Alcohol abuse counseling and surveillance of alcoholic; Z59.0 Homelessness; Z71.51 Drug abuse counseling and surveillance of drug abuser
CPT/HCPCS: 80307; 83036; 84439; 84443

== ENCOUNTER 2019-10-23 02:12 | Inpatient (IN) | payer MEDICAID ==
[~2019-10-23] VITALS: Ht 175.3 cm; Wt 78.7 kg
[~2019-10-23 02:12] MED LIST changes: -PANT20TA PO; +PANT40TA25 PO; -TRAZ-257 PO
[2019-10-23 03:11] LABS: BASOPHILS % (AUTO) 0.8 % (0.0-2.0); EOSINOPHILS % (AUTO) 8.2 % (1.0-6.0); HEMATOCRIT 42.5 % (41-53); HEMOGLOBIN 14.5 g/dL (13.5-17.5); LYMPHOCYTES % (AUTO) 24.3 % (22.0-44.0); MEAN CORPUSCULAR HGB CONC 34.1 G/dL (31.0-37.0); MEAN CORPUSCULAR VOLUME 94 fL (80-100); MONOCYTES # (AUTO) 1.1 K/uL (0.1-1.0); MONOCYTES % (AUTO) 13.8 % (2.0-9.0); NEUTROPHILS # (AUTO) 4.4 K/uL (1.8-7.7); NEUTROPHILS % (AUTO) 52.9 % (40.0-70.0); PLATELET COUNT (AUTO) 212 K/uL (150-450); RED BLOOD CELL COUNT(AUTO) 4.54 MIL/uL (4.50-5.90); RED CELL DISTRIBUTION WIDTH 13.4 % (11.5-14.5)
[2019-10-23 03:34] LABS: ANION GAP 7 mmol/L (8-16); CARBON DIOXIDE 28 mmol/L (22-29); CHLORIDE 103 mmol/L (98-107); GLUCOSE,RANDOM 109 mg/dL (70-110); POTASSIUM 3.2 mmol/L (3.5-5.1); SODIUM SERUM 138 mmol/L (136-145)
[2019-10-23 03:35] LABS: CALCIUM, TOTAL 8.6 mg/dL (8.8-10.5); GLOMERULAR FILTR. RATE CALC > 60 mL/min (>60); UREA NITROGEN, BLOOD 17 mg/dL (7-18)
[2019-10-23 03:40] LABS: ALANINE AMINOTRANSFERASE 76 U/L (12-78); ALKALINE PHOSPHATASE 64 U/L (46-116); ASPARTATE AMINOTRANSFERASE 54 U/L (15-37); BILIRUBIN,TOTAL 1.7 mg/dL (0.1-1.0); TOTAL PROTEIN, SERUM 6.8 g/dL (6.4-8.2)
[2019-10-23] MEDS ORDERED: HALOPERIDOL 5 MG TABLET PO PRN (05:15)
[2019-10-23] MEDS ORDERED: POTASSIUM CHLORIDE 20 MEQ ER TABLET PO ONE (06:00)
[2019-10-23 09:12] VITALS: BP 129/71
[2019-10-23] MEDS ORDERED: ALBUTEROL SULFATE HFA 90 MCG/PUFF 8 GM INHALER IH PRN (12:30)
[2019-10-23] MEDS ORDERED: PETROLATUM,WHITE 28 GM JELLY TP PRN (12:30)
[2019-10-23] MEDS ORDERED: CloNIDine HCL 0.1 MG TABLET PO PRN (12:30)
[2019-10-23] MEDS ORDERED: MAG HYDROX/AL HYDROX/SIMETH ES 30 ML SUSPENSION UDCUP PO PRN (12:30)
[2019-10-23] MEDS ORDERED: DOCUSATE SODIUM 100 MG CAPSULE PO PRN (12:30)
[2019-10-23] MEDS ORDERED: ONDANSETRON HCL 4 MG TABLET PO PRN (12:30)
[2019-10-23] MEDS ORDERED: ACETAMINOPHEN 325 MG TABLET PO PRN (12:30)
[2019-10-23] MEDS ORDERED: NICOTINE 14 MG/24 HOUR PATCH TD PRN (12:30)
[2019-10-23] MEDS ORDERED: LOPERAMIDE HCL 2 MG CAPSULE PO PRN (12:30)
[2019-10-23] MEDS ORDERED: GuaiFENesin/D-METHORPHAN [SUGAR-FREE] 200-20MG/10 ML SYRUP UDCUP PO PRN (12:30)
[2019-10-23] MEDS ORDERED: MAGNESIUM HYDROXIDE SUSPENSION 30 ML UDCUP PO PRN (12:30)
[2019-10-23 17:06] VITALS: BP 136/80
[2019-10-24 03:50] VITALS: BP 106/60
[2019-10-24] MEDS: OLANZapine 10 MG TABLET PO SCH ×2 (08:04→18:48)
[2019-10-24] MEDS: BuPROPion HCL XL 150 MG ER TABLET PO SCH (08:04)
[2019-10-24 08:05] LABS: CHOL/HDL RATIO 2.6 (4.2-7.3)
[2019-10-24 08:53] VITALS: BP 119/75
[2019-10-24] MEDS: LORazepam 2 MG TABLET PO PRN (09:46)
[2019-10-24] MEDS: IBUPROFEN 400 MG TABLET PO PRN (09:46)
[2019-10-24 18:01] VITALS: BP 127/61
[2019-10-25 01:30] VITALS: BP 118/88
[2019-10-25] MEDS: IBUPROFEN 400 MG TABLET PO PRN (01:33)
[2019-10-25] MEDS: OLANZapine 10 MG TABLET PO SCH ×2 (10:23→16:55)
[2019-10-25] MEDS: BuPROPion HCL XL 150 MG ER TABLET PO SCH (10:23)
[2019-10-25 16:45] VITALS: BP 112/63
[2019-10-26 02:29] VITALS: BP 129/82
[2019-10-26] MEDS: ZOLPIDEM TARTRATE 10 MG TABLET PO PRN (02:31)
[2019-10-26] MEDS: IBUPROFEN 400 MG TABLET PO PRN ×2 (02:32→17:08)
[2019-10-26 08:00] VITALS: BP 101/54
[2019-10-26] MEDS: OLANZapine 10 MG TABLET PO SCH ×2 (09:12→16:15)
[2019-10-26] MEDS: BuPROPion HCL XL 150 MG ER TABLET PO SCH (09:12)
[2019-10-26 17:09] VITALS: BP 103/59
[2019-10-27] MEDS: BuPROPion HCL XL 150 MG ER TABLET PO SCH (08:49)
[2019-10-27] MEDS: OLANZapine 10 MG TABLET PO SCH ×2 (08:49→15:58)
[2019-10-27 09:23] VITALS: BP 114/67
[2019-10-27] MEDS: IBUPROFEN 400 MG TABLET PO PRN (15:59)
[2019-10-27 16:00] VITALS: BP 113/68
[2019-10-27] MEDS: LORazepam 2 MG TABLET PO PRN (17:55)
[2019-10-27] MEDS: ZOLPIDEM TARTRATE 10 MG TABLET PO PRN (20:09)
[2019-10-28 00:50] VITALS: BP 129/84
[2019-10-28] MEDS: IBUPROFEN 400 MG TABLET PO PRN ×3 (00:52→19:08)
[2019-10-28] MEDS: BuPROPion HCL XL 150 MG ER TABLET PO SCH (08:21)
[2019-10-28] MEDS: OLANZapine 10 MG TABLET PO SCH ×2 (08:21→16:15)
[2019-10-28 08:32] VITALS: BP 110/66
[2019-10-28 11:00] VITALS: BP 118/72
[2019-10-28] MEDS: LORazepam 2 MG TABLET PO PRN ×2 (11:02→15:37)
[2019-10-28 19:04] VITALS: BP 116/70
[2019-10-28] MEDS: ZOLPIDEM TARTRATE 10 MG TABLET PO PRN (20:19)
[2019-10-29 04:41] VITALS: BP 122/63
[2019-10-29] MEDS: IBUPROFEN 400 MG TABLET PO PRN ×2 (04:41→19:21)
[2019-10-29] MEDS: LORazepam 2 MG TABLET PO PRN ×2 (04:41→14:45)
[2019-10-29] MEDS: BuPROPion HCL XL 150 MG ER TABLET PO SCH (08:16)
[2019-10-29] MEDS: OLANZapine 10 MG TABLET PO SCH ×2 (08:16→16:19)
[2019-10-29 08:55] VITALS: BP 114/69
[2019-10-29 16:07] VITALS: BP 147/70
[2019-10-29 19:17] VITALS: BP 141/81
[2019-10-29] MEDS: ZOLPIDEM TARTRATE 10 MG TABLET PO PRN (20:35)
[2019-10-30 03:17] VITALS: BP 111/83
[2019-10-30] MEDS: OLANZapine 10 MG TABLET PO SCH ×2 (08:23→16:01)
[2019-10-30] MEDS: BuPROPion HCL XL 150 MG ER TABLET PO SCH (08:23)
[2019-10-30 09:29] VITALS: BP 132/84
[2019-10-30] MEDS: LORazepam 2 MG TABLET PO PRN (16:01)
[2019-10-30 16:23] VITALS: BP 132/73
[2019-10-30] MEDS: IBUPROFEN 400 MG TABLET PO PRN (20:09)
[2019-10-30] MEDS: ZOLPIDEM TARTRATE 10 MG TABLET PO PRN (20:09)
[2019-10-30 20:10] VITALS: BP 129/78
[2019-10-31 01:00] VITALS: BP 127/75
[2019-10-31 07:25] VITALS: BP 149/68
[2019-10-31] MEDS: IBUPROFEN 400 MG TABLET PO PRN ×2 (07:27→15:29)
[2019-10-31 09:18] VITALS: BP 129/70
[2019-10-31] MEDS: OLANZapine 10 MG TABLET PO SCH ×2 (10:17→16:40)
[2019-10-31] MEDS: BuPROPion HCL XL 150 MG ER TABLET PO SCH (10:17)
[2019-10-31 17:23] VITALS: BP 135/66
[2019-10-31] MEDS: ZOLPIDEM TARTRATE 10 MG TABLET PO PRN (20:25)
[2019-11-01 02:32] VITALS: BP 130/87
[2019-11-01 06:30] VITALS: BP 127/89
[2019-11-01] MEDS: LORazepam 2 MG TABLET PO PRN (06:31)
[2019-11-01] MEDS: IBUPROFEN 400 MG TABLET PO PRN (06:31)
[2019-11-01] MEDS: OLANZapine 10 MG TABLET PO SCH (09:28)
[2019-11-01] MEDS: BuPROPion HCL XL 150 MG ER TABLET PO SCH (09:28)
[2019-11-01 09:38] VITALS: BP 125/84
[2019-11-01] MEDS ORDERED: OLAN10TA3 PO (12:14)
[2019-11-01] MEDS ORDERED: BUPR-93 PO (12:15)
== END 2019-11-01 01:40 | disposition home or self-care (01) | DRG 885 ==
LOC: EMS 02:14 → 3EC 05:00 → 3EI 10-30 14:32
PROVIDERS: ADMIT Psychiatry & Neurology Psychiatry; ATTEND Psychiatry & Neurology Psychiatry
DX: F25.9 Schizoaffective disorder, unspecified (principal); R45.851 Suicidal ideations; E87.6 Hypokalemia; F15.90 Other stimulant use, unspecified, uncomplicated; K21.9 Gastro-esophageal reflux disease without esophagitis; F41.9 Anxiety disorder, unspecified; F17.210 Nicotine dependence, cigarettes, uncomplicated; F19.10 Other psychoactive substance abuse, uncomplicated; F32.9 Major depressive disorder, single episode, unspecified; S62.202A Unspecified fracture of first metacarpal bone, left hand, initial encounter for closed fracture; X58.XXXA Exposure to other specified factors, initial encounter; Z59.0 Homelessness; Y93.89 Activity, other specified; Y92.89 Other specified places as the place of occurrence of the external cause; Y99.8 Other external cause status
CPT/HCPCS: 87081; G0480

== ENCOUNTER 2019-12-03 17:03 | Inpatient (IN) | payer MEDICAID ==
[~2019-12-03] VITALS: Ht 175.3 cm; Wt 78.9 kg
[~2019-12-03 17:03] MED LIST changes: +BUPR-93 PO; -BUPR300T53 PO; -PANT40TA25 PO
[2019-12-03] MEDS ORDERED: HALOPERIDOL 5 MG TABLET PO PRN (21:15)
[2019-12-03 21:58] VITALS: BP 122/74
[2019-12-04] MEDS ORDERED: CloNIDine HCL 0.1 MG TABLET PO PRN ×2 (07:00)
[2019-12-04] MEDS ORDERED: GuaiFENesin/D-METHORPHAN [SUGAR-FREE] 200-20MG/10 ML SYRUP UDCUP PO PRN ×2 (07:00)
[2019-12-04] MEDS ORDERED: ONDANSETRON HCL 4 MG TABLET PO PRN ×2 (07:00)
[2019-12-04] MEDS ORDERED: IBUPROFEN 400 MG TABLET PO PRN (07:00)
[2019-12-04] MEDS ORDERED: ACETAMINOPHEN 325 MG TABLET PO PRN (07:00)
[2019-12-04] MEDS ORDERED: ALBUTEROL SULFATE HFA 90 MCG/PUFF 8 GM INHALER IH PRN ×2 (07:00)
[2019-12-04] MEDS ORDERED: LOPERAMIDE HCL 2 MG CAPSULE PO PRN ×2 (07:00)
[2019-12-04] MEDS ORDERED: MAGNESIUM HYDROXIDE SUSPENSION 30 ML UDCUP PO PRN ×2 (07:00)
[2019-12-04] MEDS ORDERED: MAG HYDROX/AL HYDROX/SIMETH ES 30 ML SUSPENSION UDCUP PO PRN ×2 (07:00)
[2019-12-04] MEDS ORDERED: PETROLATUM,WHITE 28 GM JELLY TP PRN ×2 (07:00)
[2019-12-04] MEDS ORDERED: NICOTINE 14 MG/24 HOUR PATCH TD PRN ×2 (07:00)
[2019-12-04] MEDS ORDERED: DOCUSATE SODIUM 100 MG CAPSULE PO PRN ×2 (07:00)
[2019-12-04 08:39] LABS: BASOPHILS % (AUTO) 1.1 % (0.0-2.0); EOSINOPHILS % (AUTO) 7.4 % (1.0-6.0); HEMATOCRIT 44.3 % (41-53); HEMOGLOBIN 15.3 g/dL (13.5-17.5); LYMPHOCYTES # (AUTO) 1.8 K/uL (1.0-4.8); LYMPHOCYTES % (AUTO) 29.9 % (22.0-44.0); MEAN CORPUSCULAR HEMOGLOBIN 32.1 pg (26.0-34.0); MEAN CORPUSCULAR HGB CONC 34.5 G/dL (31.0-37.0); MEAN CORPUSCULAR VOLUME 93 fL (80-100); MONOCYTES # (AUTO) 0.6 K/uL (0.1-1.0); MONOCYTES % (AUTO) 10.3 % (2.0-9.0); NEUTROPHILS # (AUTO) 3.1 K/uL (1.8-7.7); NEUTROPHILS % (AUTO) 51.3 % (40.0-70.0); PLATELET COUNT (AUTO) 196 K/uL (150-450); RED BLOOD CELL COUNT(AUTO) 4.77 MIL/uL (4.50-5.90); RED CELL DISTRIBUTION WIDTH 13.2 % (11.5-14.5)
[2019-12-04 08:46] VITALS: BP 108/68
[2019-12-04 09:12] LABS: ALANINE AMINOTRANSFERASE 33 U/L (12-78); ALKALINE PHOSPHATASE 63 U/L (46-116); ANION GAP 10 mmol/L (8-16); ASPARTATE AMINOTRANSFERASE 33 U/L (15-37); BILIRUBIN,TOTAL 1.4 mg/dL (0.1-1.0); CALCIUM, TOTAL 8.7 mg/dL (8.8-10.5); CARBON DIOXIDE 26 mmol/L (22-29); CHLORIDE 101 mmol/L (98-107); CHOL/HDL RATIO 3.9 (4.2-7.3); CHOLESTEROL 122 mg/dL (131-200); CREATININE 0.86 mg/dL (0.60-1.30); FREE T4 (FREE THYROXINE) 1.16 ng/dL (0.76-1.46); GLOMERULAR FILTR. RATE CALC > 60 mL/min (>60); GLUCOSE,RANDOM 90 mg/dL (70-110); HDL CHOLESTEROL 31 mg/dL (40-60); LDL CHOL (CALC.) 81 mg/dL (0-130); POTASSIUM 3.4 mmol/L (3.5-5.1); SODIUM SERUM 137 mmol/L (136-145); THYROID STIMULATING HORMONE 0.54 uIU/mL (0.36-3.74); TOTAL PROTEIN, SERUM 6.8 g/dL (6.4-8.2); TRIGLYCERIDES 50 mg/dL (15-150); UREA NITROGEN, BLOOD 12 mg/dL (7-18)
[2019-12-04] MEDS: LORazepam 1 MG TABLET PO PRN (09:48)
[2019-12-04 09:49] VITALS: BP 112/78
[2019-12-04] MEDS: IBUPROFEN 400 MG TABLET PO PRN (09:49)
[2019-12-04] MEDS: OLANZapine 10 MG TABLET PO SCH ×2 (12:04→17:08)
[2019-12-04] MEDS: BuPROPion HCL XL 150 MG ER TABLET PO SCH (12:04)
[2019-12-04] MEDS ORDERED: POTASSIUM CHLORIDE 20 MEQ ER TABLET PO ONE (14:00)
[2019-12-04 16:14] VITALS: BP 136/89
[2019-12-05 05:05] VITALS: BP 122/80
[2019-12-05 08:17] VITALS: BP 119/62
[2019-12-05] MEDS: BuPROPion HCL XL 150 MG ER TABLET PO SCH (08:46)
[2019-12-05] MEDS: OLANZapine 10 MG TABLET PO SCH ×2 (08:46→17:19)
[2019-12-05 16:32] VITALS: BP 100/60
[2019-12-06 01:59] VITALS: BP 117/71
[2019-12-06] MEDS: BuPROPion HCL XL 150 MG ER TABLET PO SCH (08:30)
[2019-12-06] MEDS: OLANZapine 10 MG TABLET PO SCH ×2 (08:30→16:42)
[2019-12-06 09:31] VITALS: BP 102/55
[2019-12-06 16:00] VITALS: BP 111/69
[2019-12-06] MEDS: IBUPROFEN 400 MG TABLET PO PRN (20:11)
[2019-12-07 00:11] VITALS: BP 122/80
[2019-12-07] MEDS: ACETAMINOPHEN 325 MG TABLET PO PRN (00:54)
[2019-12-07 01:47] VITALS: BP 128/76
[2019-12-07] MEDS: LORazepam 1 MG TABLET PO PRN ×3 (01:56→22:48)
[2019-12-07] MEDS: ZOLPIDEM TARTRATE 10 MG TABLET PO PRN (01:56)
[2019-12-07 07:01] VITALS: BP 124/76
[2019-12-07] MEDS: IBUPROFEN 400 MG TABLET PO PRN ×3 (07:04→21:53)
[2019-12-07 08:15] VITALS: BP 123/65
[2019-12-07] MEDS: BuPROPion HCL XL 150 MG ER TABLET PO SCH (09:10)
[2019-12-07] MEDS: OLANZapine 10 MG TABLET PO SCH ×2 (09:10→16:03)
[2019-12-07] MEDS ORDERED: BENZOCAINE 10% 7 GM GEL TP PRN (14:00)
[2019-12-07 16:14] VITALS: BP 114/69
[2019-12-08 01:08] VITALS: BP 115/73
[2019-12-08 08:05] LABS: BASOPHILS % (AUTO) 1.4 % (0.0-2.0); HEMATOCRIT 43.9 % (41-53); HEMOGLOBIN 15.1 g/dL (13.5-17.5); LYMPHOCYTES # (AUTO) 1.6 K/uL (1.0-4.8); LYMPHOCYTES % (AUTO) 28.7 % (22.0-44.0); MEAN CORPUSCULAR HEMOGLOBIN 32.3 pg (26.0-34.0); MEAN CORPUSCULAR HGB CONC 34.5 G/dL (31.0-37.0); MEAN CORPUSCULAR VOLUME 94 fL (80-100); MONOCYTES # (AUTO) 0.5 K/uL (0.1-1.0); MONOCYTES % (AUTO) 8.5 % (2.0-9.0); NEUTROPHILS % (AUTO) 53.4 % (40.0-70.0); PLATELET COUNT (AUTO) 186 K/uL (150-450); RED BLOOD CELL COUNT(AUTO) 4.69 MIL/uL (4.50-5.90); RED CELL DISTRIBUTION WIDTH 12.9 % (11.5-14.5)
[2019-12-08 08:06] VITALS: BP 100/64
[2019-12-08 08:28] LABS: HEMOGLOBIN A1C 4.9 % (3.8-5.6)
[2019-12-08 08:32] LABS: ALANINE AMINOTRANSFERASE 24 U/L (12-78); ALBUMIN 3.8 g/dL (3.4-5.0); ALKALINE PHOSPHATASE 54 U/L (46-116); ANION GAP 10 mmol/L (8-16); ASPARTATE AMINOTRANSFERASE 12 U/L (15-37); BILIRUBIN,TOTAL 0.4 mg/dL (0.1-1.0); CALCIUM, TOTAL 8.8 mg/dL (8.8-10.5); CARBON DIOXIDE 28 mmol/L (22-29); CHLORIDE 104 mmol/L (98-107); CHOLESTEROL 117 mg/dL (131-200); CREATININE 0.79 mg/dL (0.60-1.30); GLOMERULAR FILTR. RATE CALC > 60 mL/min (>60); GLUCOSE,RANDOM 91 mg/dL (70-110); POTASSIUM 4.3 mmol/L (3.5-5.1); SODIUM SERUM 142 mmol/L (136-145); THYROID STIMULATING HORMONE 1.89 uIU/mL (0.36-3.74); TOTAL PROTEIN, SERUM 6.6 g/dL (6.4-8.2); TRIGLYCERIDES 69 mg/dL (15-150); UREA NITROGEN, BLOOD 13 mg/dL (7-18)
[2019-12-08] MEDS: OLANZapine 10 MG TABLET PO SCH ×2 (08:33→16:29)
[2019-12-08] MEDS: BuPROPion HCL XL 150 MG ER TABLET PO SCH (08:33)
[2019-12-08 08:44] LABS: CHOL/HDL RATIO 3.7 (4.2-7.3); HDL CHOLESTEROL 32 mg/dL (40-60); LDL CHOL (CALC.) 71 mg/dL (0-130)
[2019-12-08 13:58] VITALS: BP 112/72
[2019-12-08] MEDS: LORazepam 1 MG TABLET PO PRN ×2 (13:58→20:02)
[2019-12-08] MEDS: IBUPROFEN 400 MG TABLET PO PRN ×2 (13:58→22:39)
[2019-12-08 16:00] VITALS: BP 108/76
[2019-12-08] MEDS: ACETAMINOPHEN 325 MG TABLET PO PRN (17:58)
[2019-12-09 00:02] VITALS: BP 125/78
[2019-12-09] MEDS: BuPROPion HCL XL 150 MG ER TABLET PO SCH (08:35)
[2019-12-09] MEDS: OLANZapine 10 MG TABLET PO SCH ×2 (08:35→16:32)
[2019-12-09 08:48] VITALS: BP 104/64
[2019-12-09 13:57] VITALS: BP 112/72
[2019-12-09] MEDS: IBUPROFEN 400 MG TABLET PO PRN (13:57)
[2019-12-09] MEDS: LORazepam 1 MG TABLET PO PRN ×2 (13:57→19:55)
[2019-12-09 17:13] VITALS: BP 116/78
[2019-12-10 02:16] VITALS: BP 117/74
[2019-12-10 08:06] VITALS: BP 103/68
[2019-12-10] MEDS: BuPROPion HCL XL 150 MG ER TABLET PO SCH (08:18)
[2019-12-10] MEDS: OLANZapine 10 MG TABLET PO SCH ×2 (08:18→15:52)
[2019-12-10] MEDS: LORazepam 1 MG TABLET PO PRN (13:45)
[2019-12-10] MEDS: IBUPROFEN 400 MG TABLET PO PRN (16:31)
[2019-12-10 16:37] VITALS: BP 123/71
[2019-12-10] MEDS: ZOLPIDEM TARTRATE 10 MG TABLET PO PRN (20:35)
[2019-12-11 00:20] VITALS: BP 115/75
[2019-12-11] MEDS: IBUPROFEN 400 MG TABLET PO PRN ×3 (04:45→20:06)
[2019-12-11] MEDS: LORazepam 1 MG TABLET PO PRN (05:58)
[2019-12-11 08:22] VITALS: BP 114/63
[2019-12-11] MEDS: OLANZapine 10 MG TABLET PO SCH ×2 (08:45→17:08)
[2019-12-11] MEDS: BuPROPion HCL XL 150 MG ER TABLET PO SCH (08:45)
[2019-12-11 16:24] VITALS: BP 123/69
[2019-12-11] MEDS: ZOLPIDEM TARTRATE 10 MG TABLET PO PRN (20:06)
[2019-12-12 00:27] VITALS: BP 117/65
[2019-12-12] MEDS ORDERED: BUPR100 PO (01:42)
== END 2019-12-12 07:06 | disposition home or self-care (01) | DRG 750 ==
LOC: B2S 21:25
PROVIDERS: ATTEND Psychiatry & Neurology Child & Adolescent Psychiatry
DX: F25.1 Schizoaffective disorder, depressive type (principal); R45.851 Suicidal ideations; Z91.19 Patient's noncompliance with other medical treatment and regimen; E87.6 Hypokalemia; F15.90 Other stimulant use, unspecified, uncomplicated; F17.200 Nicotine dependence, unspecified, uncomplicated; F41.9 Anxiety disorder, unspecified; K21.9 Gastro-esophageal reflux disease without esophagitis; F19.10 Other psychoactive substance abuse, uncomplicated
CPT/HCPCS: 83036; 84439; 84443; G0480

== ENCOUNTER 2019-12-19 11:08 | Emergency (ER) | payer MEDICAID ==
[~2019-12-19] VITALS: Ht 175.3 cm; Wt 79.5 kg
[2019-12-19 12:32] LABS: BASOPHILS % (AUTO) 0.6 % (0.0-2.0); HEMATOCRIT 40.7 % (41-53); HEMOGLOBIN 14.3 g/dL (13.5-17.5); LYMPHOCYTES # (AUTO) 0.8 K/uL (1.0-4.8); LYMPHOCYTES % (AUTO) 10.2 % (22.0-44.0); MEAN CORPUSCULAR HEMOGLOBIN 32.5 pg (26.0-34.0); MEAN CORPUSCULAR HGB CONC 35.2 G/dL (31.0-37.0); MEAN CORPUSCULAR VOLUME 92 fL (80-100); MONOCYTES # (AUTO) 0.7 K/uL (0.1-1.0); MONOCYTES % (AUTO) 8.8 % (2.0-9.0); NEUTROPHILS # (AUTO) 5.6 K/uL (1.8-7.7); NEUTROPHILS % (AUTO) 74.4 % (40.0-70.0); PLATELET COUNT (AUTO) 207 K/uL (150-450); RED BLOOD CELL COUNT(AUTO) 4.41 MIL/uL (4.50-5.90); RED CELL DISTRIBUTION WIDTH 13.4 % (11.5-14.5)
[2019-12-19 12:47] LABS: ANION GAP 11 mmol/L (8-16); CALCIUM, TOTAL 8.5 mg/dL (8.8-10.5); CARBON DIOXIDE 26 mmol/L (22-29); CHLORIDE 103 mmol/L (98-107); CREATININE 0.84 mg/dL (0.60-1.30); GLOMERULAR FILTR. RATE CALC > 60 mL/min (>60); GLUCOSE,RANDOM 95 mg/dL (70-110); POTASSIUM 3.4 mmol/L (3.5-5.1); SODIUM SERUM 140 mmol/L (136-145); UREA NITROGEN, BLOOD 15 mg/dL (7-18)
[2019-12-19 12:52] LABS: ALANINE AMINOTRANSFERASE 43 U/L (12-78); ALBUMIN 3.9 g/dL (3.4-5.0); ALKALINE PHOSPHATASE 60 U/L (46-116); ASPARTATE AMINOTRANSFERASE 46 U/L (15-37); BILIRUBIN,TOTAL 1.1 mg/dL (0.1-1.0); TOTAL PROTEIN, SERUM 6.8 g/dL (6.4-8.2)
[2019-12-19] MEDS ORDERED: POTASSIUM CHLORIDE 20 MEQ ER TABLET PO ONE (13:45)
[2019-12-19 14:39] VITALS: BP 129/76
[2019-12-19] MEDS ORDERED: OLANZapine 5 MG TABLET PO ONE (14:45)
[2019-12-19 14:53] LABS: AMPHET/METH SCREEN,URINE POSITIVE (NEGATIVE); BARBITURATE SCREEN, URINE NEGATIVE (NEGATIVE); BENZODIAZEPINES SCREEN,URINE NEGATIVE (NEGATIVE); CANNABINOID SCREEN,URINE POSITIVE (NEGATIVE); COCAINE SCREEN,URINE NEGATIVE (NEGATIVE); METHADONE SCREEN, URINE NEGATIVE (NEGATIVE); OPIATE SCREEN,URINE NEGATIVE (NEGATIVE)
[2019-12-19 14:59] LABS: PHENCYCLIDINE SCREEN,URINE NEGATIVE (NEGATIVE)
== END 2019-12-19 14:58 | disposition home or self-care (01) ==
LOC: EMS 11:12
DX: F32.9 Major depressive disorder, single episode, unspecified (principal); F15.10 Other stimulant abuse, uncomplicated; F17.210 Nicotine dependence, cigarettes, uncomplicated; F12.90 Cannabis use, unspecified, uncomplicated
CPT/HCPCS: 36415; 80053; 80307; 85025; 99285; 99406; G0480

== ENCOUNTER 2019-12-31 13:27 | Inpatient (IN) | payer MEDICAID ==
[~2019-12-31] VITALS: Ht 175.3 cm; Wt 72.7 kg
[2019-12-31 16:05] LABS: BASOPHILS % (AUTO) 0.9 % (0.0-2.0); EOSINOPHILS % (AUTO) 8.5 % (1.0-6.0); HEMATOCRIT 46.7 % (41-53); HEMOGLOBIN 15.6 g/dL (13.5-17.5); LYMPHOCYTES # (AUTO) 1.9 K/uL (1.0-4.8); LYMPHOCYTES % (AUTO) 17.7 % (22.0-44.0); MEAN CORPUSCULAR HEMOGLOBIN 31.3 pg (26.0-34.0); MEAN CORPUSCULAR HGB CONC 33.4 G/dL (31.0-37.0); MEAN CORPUSCULAR VOLUME 94 fL (80-100); MONOCYTES # (AUTO) 0.7 K/uL (0.1-1.0); MONOCYTES % (AUTO) 6.9 % (2.0-9.0); NEUTROPHILS # (AUTO) 7.1 K/uL (1.8-7.7); PLATELET COUNT (AUTO) 308 K/uL (150-450); RED BLOOD CELL COUNT(AUTO) 4.98 MIL/uL (4.50-5.90); RED CELL DISTRIBUTION WIDTH 13.3 % (11.5-14.5)
[2019-12-31 16:21] LABS: ANION GAP 5 mmol/L (8-16); CALCIUM, TOTAL 9.4 mg/dL (8.8-10.5); CARBON DIOXIDE 32 mmol/L (22-29); CHLORIDE 104 mmol/L (98-107); CREATININE 0.89 mg/dL (0.60-1.30); GLOMERULAR FILTR. RATE CALC > 60 mL/min (>60); GLUCOSE,RANDOM 93 mg/dL (70-110); POTASSIUM 4.2 mmol/L (3.5-5.1); SODIUM SERUM 141 mmol/L (136-145); UREA NITROGEN, BLOOD 11 mg/dL (7-18)
[2019-12-31 16:27] LABS: ALANINE AMINOTRANSFERASE 17 U/L (12-78); ALBUMIN 3.8 g/dL (3.4-5.0); ALKALINE PHOSPHATASE 65 U/L (46-116); ASPARTATE AMINOTRANSFERASE 13 U/L (15-37); BILIRUBIN,TOTAL 0.3 mg/dL (0.1-1.0); TOTAL PROTEIN, SERUM 7.9 g/dL (6.4-8.2)
[2019-12-31] MEDS ORDERED: HALOPERIDOL 5 MG TABLET PO PRN (17:30)
[2019-12-31] MEDS ORDERED: ZOLPIDEM TARTRATE 10 MG TABLET PO PRN (17:30)
[2019-12-31 19:49] LABS: AMPHET/METH SCREEN,URINE POSITIVE (NEGATIVE); BARBITURATE SCREEN, URINE NEGATIVE (NEGATIVE); BENZODIAZEPINES SCREEN,URINE POSITIVE (NEGATIVE); CANNABINOID SCREEN,URINE POSITIVE (NEGATIVE); COCAINE SCREEN,URINE NEGATIVE (NEGATIVE); METHADONE SCREEN, URINE NEGATIVE (NEGATIVE); OPIATE SCREEN,URINE NEGATIVE (NEGATIVE)
[2019-12-31 19:51] LABS: PHENCYCLIDINE SCREEN,URINE NEGATIVE (NEGATIVE)
[2019-12-31 21:55] VITALS: BP 110/78
[2019-12-31 22:37] VITALS: BP 114/68
[2019-12-31 23:37] VITALS: BP 116/70
[2020-01-01] VITALS (10 sets, daily range): BP systolic 110–129; BP diastolic 58–70
[2020-01-01] MEDS ORDERED: DOCUSATE SODIUM 100 MG CAPSULE PO PRN (13:45)
[2020-01-01] MEDS ORDERED: ONDANSETRON HCL 4 MG TABLET PO PRN (13:45)
[2020-01-01] MEDS ORDERED: MAG HYDROX/AL HYDROX/SIMETH ES 30 ML SUSPENSION UDCUP PO PRN (13:45)
[2020-01-01] MEDS ORDERED: ALBUTEROL SULFATE HFA 90 MCG/PUFF 8 GM INHALER IH PRN (13:45)
[2020-01-01] MEDS ORDERED: CloNIDine HCL 0.1 MG TABLET PO PRN (13:45)
[2020-01-01] MEDS ORDERED: PETROLATUM,WHITE 28 GM JELLY TP PRN (13:45)
[2020-01-01] MEDS ORDERED: GuaiFENesin/D-METHORPHAN [SUGAR-FREE] 200-20MG/10 ML SYRUP UDCUP PO PRN (13:45)
[2020-01-01] MEDS ORDERED: ACETAMINOPHEN 325 MG TABLET PO PRN (13:45)
[2020-01-01] MEDS ORDERED: MAGNESIUM HYDROXIDE SUSPENSION 30 ML UDCUP PO PRN (13:45)
[2020-01-01] MEDS ORDERED: LOPERAMIDE HCL 2 MG CAPSULE PO PRN (13:45)
[2020-01-01] MEDS ORDERED: NICOTINE 14 MG/24 HOUR PATCH TD PRN (13:45)
[2020-01-01] MEDS: BuPROPion HCL XL 150 MG ER TABLET PO SCH (13:48)
[2020-01-01] MEDS: LORazepam 2 MG TABLET PO PRN (16:15)
[2020-01-01] MEDS: OLANZapine 10 MG TABLET PO SCH (16:15)
[2020-01-02 00:39] VITALS: BP 111/60
[2020-01-02 00:40] VITALS: BP 111/60
[2020-01-02 08:00] VITALS: BP 107/57
[2020-01-02 08:22] VITALS: BP 107/57
[2020-01-02] MEDS: BuPROPion HCL XL 150 MG ER TABLET PO SCH (08:59)
[2020-01-02] MEDS: OLANZapine 10 MG TABLET PO SCH ×2 (08:59→16:20)
[2020-01-02 16:08] VITALS: BP 130/74
[2020-01-02] MEDS: LORazepam 2 MG TABLET PO PRN (16:20)
[2020-01-02 16:36] VITALS: BP 130/74
[2020-01-03 00:07] VITALS: BP 128/72
[2020-01-03 00:08] VITALS: BP 128/72
[2020-01-03 08:00] VITALS: BP 122/68
[2020-01-03] MEDS: OLANZapine 10 MG TABLET PO SCH ×2 (08:38→16:49)
[2020-01-03] MEDS: BuPROPion HCL XL 150 MG ER TABLET PO SCH (08:38)
[2020-01-03 09:46] VITALS: BP 122/68
[2020-01-03 16:13] VITALS: BP 126/71
[2020-01-03 16:16] VITALS: BP 126/71
[2020-01-03] MEDS: LORazepam 2 MG TABLET PO PRN (16:49)
[2020-01-04 00:25] VITALS: BP 122/70
[2020-01-04 00:26] VITALS: BP 122/70
[2020-01-04] MEDS: BuPROPion HCL XL 150 MG ER TABLET PO SCH (08:29)
[2020-01-04] MEDS: OLANZapine 10 MG TABLET PO SCH ×2 (08:29→17:01)
[2020-01-04 09:07] VITALS: BP 114/63
[2020-01-04 16:26] VITALS: BP 104/84
[2020-01-04 16:30] VITALS: BP 110/85
[2020-01-04] MEDS: LORazepam 2 MG TABLET PO PRN (17:22)
[2020-01-05 01:31] VITALS: BP 118/75
[2020-01-05 01:33] VITALS: BP 118/75
[2020-01-05 08:15] LABS: CHOL/HDL RATIO 3.9 (4.2-7.3)
[2020-01-05] MEDS: BuPROPion HCL XL 150 MG ER TABLET PO SCH (08:24)
[2020-01-05] MEDS: OLANZapine 10 MG TABLET PO SCH ×2 (08:24→16:41)
[2020-01-05 08:44] VITALS: BP 116/70
[2020-01-05 16:20] VITALS: BP 112/61
[2020-01-05] MEDS: LORazepam 2 MG TABLET PO PRN (16:34)
[2020-01-06 00:24] VITALS: BP 121/68
[2020-01-06 00:30] VITALS: BP 121/68
[2020-01-06] MEDS: BuPROPion HCL XL 150 MG ER TABLET PO SCH (09:06)
[2020-01-06] MEDS: OLANZapine 10 MG TABLET PO SCH ×2 (09:06→17:21)
[2020-01-06 09:32] VITALS: BP 117/67
[2020-01-06 16:00] VITALS: BP 106/64
[2020-01-06] MEDS: IBUPROFEN 400 MG TABLET PO PRN (19:04)
[2020-01-07 00:43] VITALS: BP 110/71
[2020-01-07 00:44] VITALS: BP 110/71
[2020-01-07] MEDS: BuPROPion HCL XL 150 MG ER TABLET PO SCH (08:52)
[2020-01-07] MEDS: OLANZapine 10 MG TABLET PO SCH ×2 (08:52→16:06)
[2020-01-07 10:52] VITALS: BP 113/63
[2020-01-07 16:00] VITALS: BP 125/67
[2020-01-07] MEDS: LORazepam 2 MG TABLET PO PRN (18:30)
[2020-01-08 00:34] VITALS: BP 122/70
[2020-01-08 00:36] VITALS: BP 122/70
[2020-01-08] MEDS: BuPROPion HCL XL 150 MG ER TABLET PO SCH (08:47)
[2020-01-08] MEDS: THIAMINE 100 MG TABLET PO SCH (08:47)
[2020-01-08] MEDS: OLANZapine 10 MG TABLET PO SCH ×2 (08:47→16:03)
[2020-01-08] MEDS: FOLIC ACID 1 MG TABLET PO SCH (08:47)
[2020-01-08] MEDS: MULTIVITAMINS WITH MINERALS, THERAPEUTIC TABLET PO SCH (08:47)
[2020-01-08 10:59] VITALS: BP 114/77
[2020-01-08 14:04] VITALS: BP 114/77
[2020-01-08 16:14] VITALS: BP 111/83
[2020-01-08] MEDS: LORazepam 2 MG TABLET PO PRN (18:01)
[2020-01-08] MEDS: IBUPROFEN 400 MG TABLET PO PRN (19:48)
[2020-01-09 00:10] VITALS: BP 112/80
[2020-01-09 00:12] VITALS: BP 112/80
[2020-01-09 08:30] VITALS: BP 118/89
[2020-01-09 08:32] VITALS: BP 118/73
[2020-01-09] MEDS: MULTIVITAMINS WITH MINERALS, THERAPEUTIC TABLET PO SCH (08:34)
[2020-01-09] MEDS: FOLIC ACID 1 MG TABLET PO SCH (08:34)
[2020-01-09] MEDS: THIAMINE 100 MG TABLET PO SCH (08:34)
[2020-01-09] MEDS: BuPROPion HCL XL 150 MG ER TABLET PO SCH (08:34)
[2020-01-09] MEDS: OLANZapine 10 MG TABLET PO SCH ×2 (08:34→16:20)
[2020-01-09] MEDS: IBUPROFEN 400 MG TABLET PO PRN ×2 (13:58→20:50)
[2020-01-09 16:25] VITALS: BP 110/70
[2020-01-10 03:50] VITALS: BP 121/77
[2020-01-10] MEDS: MULTIVITAMINS WITH MINERALS, THERAPEUTIC TABLET PO SCH (08:45)
[2020-01-10] MEDS: BuPROPion HCL XL 150 MG ER TABLET PO SCH (08:45)
[2020-01-10] MEDS: THIAMINE 100 MG TABLET PO SCH (08:45)
[2020-01-10] MEDS: FOLIC ACID 1 MG TABLET PO SCH (08:45)
[2020-01-10] MEDS: OLANZapine 10 MG TABLET PO SCH ×2 (08:45→16:04)
[2020-01-10 08:50] VITALS: BP 123/73
[2020-01-10 16:09] VITALS: BP 110/69
[2020-01-10] MEDS: IBUPROFEN 400 MG TABLET PO PRN (16:09)
[2020-01-10 16:33] VITALS: BP 110/69
[2020-01-11 01:09] VITALS: BP 105/73
[2020-01-11 08:18] VITALS: BP 118/68
[2020-01-11] MEDS: MULTIVITAMINS WITH MINERALS, THERAPEUTIC TABLET PO SCH (08:48)
[2020-01-11] MEDS: THIAMINE 100 MG TABLET PO SCH (08:49)
[2020-01-11] MEDS: FOLIC ACID 1 MG TABLET PO SCH (08:49)
[2020-01-11] MEDS: BuPROPion HCL XL 150 MG ER TABLET PO SCH (08:49)
[2020-01-11] MEDS: OLANZapine 10 MG TABLET PO SCH (08:49)
[2020-01-11] MEDS: IBUPROFEN 400 MG TABLET PO PRN (13:04)
[2020-01-11 16:00] VITALS: BP 111/70
== END 2020-01-11 16:20 | disposition home or self-care (01) | DRG 885 ==
LOC: EMS 13:29 → B2S 19:06
PROVIDERS: ADMIT Psychiatry & Neurology Psychiatry; ATTEND Psychiatry & Neurology Child & Adolescent Psychiatry
DX: F25.1 Schizoaffective disorder, depressive type (principal); R45.851 Suicidal ideations; K21.9 Gastro-esophageal reflux disease without esophagitis; F17.210 Nicotine dependence, cigarettes, uncomplicated; F15.10 Other stimulant abuse, uncomplicated; F41.9 Anxiety disorder, unspecified; F12.10 Cannabis abuse, uncomplicated; Z59.0 Homelessness
CPT/HCPCS: 87081; G0480

== ENCOUNTER 2020-01-26 07:28 | Emergency (ER) | payer MEDICAID ==
[~2020-01-26] VITALS: Ht 175.3 cm; Wt 61.4 kg
[2020-01-26 07:53] LABS: BASOPHILS % (AUTO) 0.6 % (0.0-2.0); EOSINOPHILS % (AUTO) 2.6 % (1.0-6.0); HEMATOCRIT 46.9 % (41-53); HEMOGLOBIN 15.9 g/dL (13.5-17.5); LYMPHOCYTES # (AUTO) 1.7 K/uL (1.0-4.8); LYMPHOCYTES % (AUTO) 13.3 % (22.0-44.0); MEAN CORPUSCULAR HEMOGLOBIN 31.6 pg (26.0-34.0); MEAN CORPUSCULAR HGB CONC 33.9 G/dL (31.0-37.0); MEAN CORPUSCULAR VOLUME 93 fL (80-100); MONOCYTES # (AUTO) 1.3 K/uL (0.1-1.0); MONOCYTES % (AUTO) 9.8 % (2.0-9.0); NEUTROPHILS # (AUTO) 9.5 K/uL (1.8-7.7); NEUTROPHILS % (AUTO) 73.7 % (40.0-70.0); PLATELET COUNT (AUTO) 295 K/uL (150-450); RED BLOOD CELL COUNT(AUTO) 5.03 MIL/uL (4.50-5.90); RED CELL DISTRIBUTION WIDTH 13.2 % (11.5-14.5)
[2020-01-26 08:03] LABS: ANION GAP 7 mmol/L (8-16); CALCIUM, TOTAL 9.3 mg/dL (8.8-10.5); CARBON DIOXIDE 32 mmol/L (22-29); CHLORIDE 103 mmol/L (98-107); CREATININE 1.05 mg/dL (0.60-1.30); GLOMERULAR FILTR. RATE CALC > 60 mL/min (>60); GLUCOSE,RANDOM 84 mg/dL (70-110); POTASSIUM 3.7 mmol/L (3.5-5.1); SODIUM SERUM 142 mmol/L (136-145); UREA NITROGEN, BLOOD 20 mg/dL (7-18)
[2020-01-26 08:09] LABS: ALANINE AMINOTRANSFERASE 48 U/L (12-78); ALBUMIN 4.8 g/dL (3.4-5.0); ALKALINE PHOSPHATASE 69 U/L (46-116); ASPARTATE AMINOTRANSFERASE 42 U/L (15-37); BILIRUBIN,TOTAL 1.7 mg/dL (0.1-1.0); TOTAL PROTEIN, SERUM 8.8 g/dL (6.4-8.2)
[2020-01-26 08:31] LABS: AMPHET/METH SCREEN,URINE POSITIVE (NEGATIVE); BARBITURATE SCREEN, URINE NEGATIVE (NEGATIVE); BENZODIAZEPINES SCREEN,URINE NEGATIVE (NEGATIVE); CANNABINOID SCREEN,URINE POSITIVE (NEGATIVE); COCAINE SCREEN,URINE NEGATIVE (NEGATIVE); METHADONE SCREEN, URINE NEGATIVE (NEGATIVE); OPIATE SCREEN,URINE NEGATIVE (NEGATIVE)
[2020-01-26 08:32] LABS: PHENCYCLIDINE SCREEN,URINE NEGATIVE (NEGATIVE)
[2020-01-26 09:30] VITALS: BP 132/78
== END 2020-01-26 10:30 | disposition home or self-care (01) ==
LOC: EMS 07:28
DX: F25.9 Schizoaffective disorder, unspecified (principal); F41.9 Anxiety disorder, unspecified; F32.9 Major depressive disorder, single episode, unspecified; F17.210 Nicotine dependence, cigarettes, uncomplicated; F12.90 Cannabis use, unspecified, uncomplicated; F19.90 Other psychoactive substance use, unspecified, uncomplicated
CPT/HCPCS: 36415; 80053; 80307; 85025; 99284; 99406; G0480

== ENCOUNTER 2020-09-15 00:03 | Emergency (ER) | payer MEDICAID ==
[~2020-09-15] VITALS: Ht 175.3 cm; Wt 68.2 kg
[2020-09-15] MEDS: LORazepam 1 MG TABLET PO ONE ×2 (03:54→04:46)
[2020-09-15 04:30] VITALS: BP 119/70
== END 2020-09-15 05:30 | disposition home or self-care (01) ==
LOC: EMS 00:06
DX: F25.9 Schizoaffective disorder, unspecified (principal); F17.210 Nicotine dependence, cigarettes, uncomplicated; F12.90 Cannabis use, unspecified, uncomplicated; F15.90 Other stimulant use, unspecified, uncomplicated
CPT/HCPCS: 99284; Z7502; Z7610

== ENCOUNTER 2021-04-29 08:30 | Emergency (ER) | payer MEDICAID ==
[~2021-04-29] VITALS: Ht 175.3 cm; Wt 68.2 kg
[~2021-04-29 08:30] MED LIST changes: -OLAN10TA3 PO; +OLAN10TA74 PO
[2021-04-29 08:58] LABS: GLUCOMETER DEV NAME(LOC) ERT.5; GLUCOSE,POINT OF CARE 63 MG/DL (70-110)
[2021-04-29 09:27] LABS: HEMOGLOBIN 14.6 g/dL (13.5-17.5); RED BLOOD CELL COUNT(AUTO) 4.66 MIL/uL (4.50-5.90)
[2021-04-29 09:28] LABS: BASOPHILS % (AUTO) 0.5 % (0.0-2.0); EOSINOPHILS % (AUTO) 1.2 % (1.0-6.0); HEMATOCRIT 43.3 % (41-53); LYMPHOCYTES % (AUTO) 8.7 % (22.0-44.0); MEAN CORPUSCULAR HEMOGLOBIN 31.3 pg (26.0-34.0); MEAN CORPUSCULAR HGB CONC 33.7 G/dL (31.0-37.0); MEAN CORPUSCULAR VOLUME 93 fL (80-100); MONOCYTES # (AUTO) 0.7 K/uL (0.1-1.0); MONOCYTES % (AUTO) 6.1 % (2.0-9.0); NEUTROPHILS # (AUTO) 9.3 K/uL (1.8-7.7); NEUTROPHILS % (AUTO) 83.5 % (40.0-70.0); PLATELET COUNT (AUTO) 318 K/uL (150-450); RED CELL DISTRIBUTION WIDTH 13.3 % (11.5-14.5)
[2021-04-29 09:36] LABS: ANION GAP 7 mmol/L (8-16); CALCIUM, TOTAL 9.1 mg/dL (8.8-10.5); CARBON DIOXIDE 30 mmol/L (22-29); CHLORIDE 103 mmol/L (98-107); CREATININE 0.79 mg/dL (0.60-1.30); GLOMERULAR FILTR. RATE CALC > 60 mL/min (>60); GLUCOSE,RANDOM 98 mg/dL (70-110); POTASSIUM 3.9 mmol/L (3.5-5.1); SODIUM SERUM 140 mmol/L (136-145); UREA NITROGEN, BLOOD 14 mg/dL (7-18)
[2021-04-29 09:42] LABS: ALANINE AMINOTRANSFERASE 31 U/L (12-78); ALBUMIN 3.5 g/dL (3.4-5.0); ALKALINE PHOSPHATASE 85 U/L (46-116); ASPARTATE AMINOTRANSFERASE 22 U/L (15-37); BILIRUBIN,TOTAL 0.4 mg/dL (0.1-1.0); LIPASE 167 U/L (73-393); TOTAL PROTEIN, SERUM 7.7 g/dL (6.4-8.2)
[2021-04-29 11:47] LABS: GLUCOMETER DEV NAME(LOC) ERT.5; GLUCOSE,POINT OF CARE 105 MG/DL (70-110)
[2021-04-29 13:20] VITALS: BP 108/81
== END 2021-04-29 13:26 | disposition home or self-care (01) ==
LOC: EMS 08:30
DX: E11.649 Type 2 diabetes mellitus with hypoglycemia without coma (principal); F12.90 Cannabis use, unspecified, uncomplicated; F15.90 Other stimulant use, unspecified, uncomplicated; F11.90 Opioid use, unspecified, uncomplicated; F17.210 Nicotine dependence, cigarettes, uncomplicated; F32.9 Major depressive disorder, single episode, unspecified; Z79.899 Other long term (current) drug therapy
CPT/HCPCS: 80053; 82962; 83690; 85025; 99285